=== PATIENT | male | born 1935 | race Caucasian/White ===

== ENCOUNTER → 2016-05-20 | Outpatient (CLI) | payer MEDICARE ==
--- NOTE | 2016-05-20 13:02 | CARD ---
APPROVED REPORT EXAM: Two-dimensional and M-mode echocardiogram with Doppler and color Doppler. Other Information Quality : GoodHR: 58bpm Rhythm : NSR INDICATION Syncope Murmur 2D DIMENSIONS RVDd3.2 (2.9-3.5cm)Left Atrium(2D)3.5 (1.6-4.0cm) IVSd0.9 (0.7-1.1cm)Aortic Root(2D)3.4 (2.0-3.7cm) LVDd5.2 (3.9-5.9cm)LVOT Diameter2.0 (1.8-2.4cm) PWd1.0 (0.7-1.1cm)LVDs2.7 (2.5-4.0cm) FS (%) 48.1 %SV104.6 ml LVEF(%)79.2 (>50%) Aortic Valve AoV Peak Arnold.158.9cm/sAoV VTI35.1cm AO Peak GR.10.1mmHgLVOT Peak Arnold.86.5cm/s LVOT VTI 20.79cmAO Mean GR.5mmHg EVELIO (VMAX)1.19gl1QVH (VTI)1.87cm2 Mitral Valve MV E Xauazvyl88.8cm/sMV DECEL [id number] MV A Maehtipa67.7cm/sMV E Mean Gr.2mmHg MV JJG27dwB/A Ratio0.9 MV A Fqrckyph478zoNWJ (PHT)2.62cm2 TDI E/Lateral E'10.9E/Medial E'10.3 Pulmonary Valve PV Peak Tkomawrd53.8cm/sPV Peak Grad.3mmHg RVOT VTI16.2cm Tricuspid Valve TR P. Eapsstsk832af/sRAP XCEEDFFU5ruVk TR Peak Gr.50irIzWFCK84iqMc Pulmonary Vein S1 Afctrrtq52.0cm/sD2 Rpjrrjmf26.2cm/s PVa hfihqnvk735trdb LEFT VENTRICLE The left ventricle is normal size. There is normal left ventricular wall thickness. Left ventricle sy stolic function is normal. The Ejection Fraction is 55-60%. There is normal LV segmental wall motion. Transmitral Doppler flow pattern is Grade I-abnormal relaxation pattern. There is no ventricular sep hoa defect visualized. RIGHT VENTRICLE The right ventricle is normal size. There is normal right ventricular wall thickness. The right ventr icular systolic function is normal. ATRIA The left atrium size is normal. The right atrium size is normal. The interatrial septum is intact wit h no evidence for an atrial septal defect or patent foramen ovale as noted on 2-D or Doppler imaging. AORTIC VALVE The aortic valve is calcified but opens well. The aortic valve is trileaflet. Doppler and Color Flow revealed no significant aortic regurgitation. There is no significant aortic valvular stenosis. MITRAL VALVE Mitral annular calcification is mild. There is no evidence of mitral valve prolapse. There is no mitr al valve stenosis. Doppler and Color Flow revealed mild mitral regurgitation. TRICUSPID VALVE The tricuspid valve is normal in structure. Doppler and Color Flow revealed mild tricuspid regurgitat ion. There is mild pulmonary hypertension. The PA pressure was estimated at 36 mmHg. PULMONIC VALVE The pulmonary valve is normal in structure. Doppler and Color Flow revealed mild pulmonic valvular re gurgitation. GREAT VESSELS The aortic root is normal in size. The ascending aorta is normal in size. Normal pulmonary venous xochilt w (Doppler). The IVC is normal in size and collapses >50% with inspiration. PERICARDIAL EFFUSION There is no pleural effusion. There is no evidence of significant pericardial effusion. Critical Notification Critical Value: No <Conclusion> Left ventricle systolic function is normal. The Ejection Fraction is 55-60%. Mild mitral regurgitation. Mild tricuspid regurgitation. There is mild pulmonary hypertension. The PA pressure was estimated at 36 mmHg. There is no evidence of significant pericardial effusion.
--- NOTE | 2016-05-21 11:28 | RAD ---
APPROVED REPORT Patient Location: OUT-PATIENT Laterality:Bilateral Indications Dizziness and Vertigo Doppler Spectral Velocity Analysis Right Left pCCA 80/09 cm/spCCA 108/12 cm/s mCCA 60/09 cm/smCCA 91/12 cm/s dCCA 59/12 cm/sdCCA 67/10 cm/s Bulb 57/07 cm/sBulb 58/10 cm/s ECA 154/ cm/sECA 96/ cm/s pICA 161/20 cm/spICA 75/13 cm/s Jose Cruz 150/17 cm/smICA 89/21 cm/s dICA 102/17 cm/sdICA 79/21 cm/s Vert. 57/ cm/sVert. 50/ cm/s Subcl. 104/ cm/sSubcl. 96/ cm/s ICA/CCA 2.01ICA/CCA 0.82 Findings Mckoy scale images of the bilateral common carotid arteries and internal and external carotid arteries were obtained. The right common carotid artery has mild intimal hyperplasia and minimal plaque. The carotid bulb appears to be tortuous with moderate to severe plaque. The right internal carotid artery has approximately 50-69% stenosis restarted velocity criteria but based on visual appearance the obs truction appears to be greater than 70%. The right vertebral artery flow is antegrade. Normal right s ubclavian flows are noted. On the left, the common carotid artery has minimal intimal hyperplasia and plaque. The carotid bulb h as mild to moderate obstructive plaque. Based on velocity criteria there is 0-50% stenosis in the lef t internal carotid artery. No significant obstructive plaque is identified. The left vertebral artery has antegrade flow. The left subclavian velocities are within normal limits. The bilateral external carotid arteries are notable for elevated velocities suggestive of mild to mod erate obstructive disease. Critical Notification Critical Value: No <Conclusion> Suspicion for greater than 70% stenosis based on ultrasound images of the right carotid artery at the bulb and internal carotid vessels. Based on velocity criteria this stenosis appears to be more moder ate at less than 70%.
== END | disposition home or self-care (01) ==
LOC: ECHO 09:53
PROVIDERS: ATTEND Internal Medicine Cardiovascular Disease
DX: I65.23 Occlusion and stenosis of bilateral carotid arteries (principal); R01.1 Cardiac murmur, unspecified; R09.89 Other specified symptoms and signs involving the circulatory and respiratory systems; R42 Dizziness and giddiness; I34.0 Nonrheumatic mitral (valve) insufficiency; I27.2 Other secondary pulmonary hypertension; I37.1 Nonrheumatic pulmonary valve insufficiency
CPT/HCPCS: 93306; 93880

== ENCOUNTER → 2016-06-13 | Outpatient (CLI) | payer MEDICARE ==
[~2016-06-13] MED LIST: ATORVASTATIN CA80 MG PO; CARV25TA2 PO; CONTRAST GIVEN MC PRN; FINA5TAB4 PO; IOHEXOL 300 MG/ML 100ML VIAL. IV ONE; LISI-338 PO; SITA1TAB7 PO; TAMS0.4C2 PO
--- NOTE | 2016-06-13 13:00 | KCIC ---
CTA neck with contrast Indication: Left carotid artery disease. Axial imaging through the soft tissues of the neck was performed after the administration of intravenous contrast and utilizing the CT angiography protocol. Multiplanar, 3D and MIP reformations were also performed. PQRS STATEMENT One or more of the following individualized dose reduction techniques were utilized for this study: 1.Automated exposure control. 2.Adjustment of the mA and/orkVaccording to patient size. 3.Use of iterative reconstruction technique. There is a 3 vessel branching pattern to the aortic arch. The origins of the great vessels appear to be patent. Both common carotid arteries are widely patent. There is mild calcified plaque noted at the left carotid bifurcation extending into the proximal internal and external carotid arteries. However, no focal stenosis is identified. On the right there is more significant calcified plaque at the carotid bifurcation extending into the proximal internal and external carotid arteries. But no high-grade stenosis is seen. There is an approximately 50 percent diameter stenosis. The remainder of the ICA is unremarkable. There is calcified plaque in the carotid siphons bilaterally. The vertebral arteries appear to be codominant. Impression: There is heavy calcified plaque at the carotid bifurcations bilaterally. This does result in approximately 50 percent diameter stenosis in the proximal right ICA. No significant stenosis on the left is identified. Electronically signed by: Trey Prieto MD (Jun 13, 2016 12:58:40)
== END | disposition home or self-care (01) ==
LOC: KCIC CT 10:14
PROVIDERS: ATTEND Internal Medicine Cardiovascular Disease
DX: I65.22 Occlusion and stenosis of left carotid artery (principal)
CPT/HCPCS: 70498; Q9967

== ENCOUNTER → 2018-01-20 | Outpatient (CLI) | payer BC ==
[~2018-01-20] MED LIST changes: -CONTRAST GIVEN MC PRN; -IOHEXOL 300 MG/ML 100ML VIAL. IV ONE
--- NOTE | 2018-01-20 11:37 | KCIC ---
Carotid Doppler dated 01/20/2018. Comparison none. Clinical Indication: Carotid stenosis. Findings: Grayscale, color flow and spectral waveform analysis was performed. Moderate plaque at both carotid bifurcations and the proximal bilateral CCA. Plaque also extends into the proximal internal carotid arteries bilaterally. Focal velocity elevation at the right carotid bulb estimated at 243 cm/s.. The waveforms are within normal limits. Flow within the bilateral vertebral arteries is antegrade. Velocity measurements are as follows (centimeters per second ) Peak systolic velocity right left ICA 229 108 CCA 74 135 ECA 180 34 ICA/CCA ratio 3.57 1.02 Impression: 1. Focal velocity elevation of the proximal right internal carotid artery and carotid bulb, consistent with moderate grade stenosis (50-69% narrowing). 2. No hemodynamically significant stenosis on the left. Stenosis calculations for carotid ultrasound studies are derived from validated velocity criteria which are known to correlate with the NASCET methodology. Electronically signed by: Jignesh Gómez MD (01/20/2018 11:34 AM) [facility]-KCIC2
== END | disposition home or self-care (01) ==
LOC: KCIC US 09:01
PROVIDERS: ATTEND Family Medicine
DX: I65.22 Occlusion and stenosis of left carotid artery (principal)
CPT/HCPCS: 93880

== ENCOUNTER → 2018-08-24 | Outpatient (CLI) | payer BC ==
--- NOTE | 2018-08-24 17:20 | KCIC ---
CHEST PA LATERAL History: Fatigue and dizziness for 2 weeks. No prior for comparison. The heart size is not enlarged. No evidence of pneumothorax. No pleural effusion. No evidence of an infiltrate. Degenerative spurring of the spine. IMPRESSION: No evidence of consolidating infiltrate. Electronically signed by: Jignesh Mcdonald MD (08/24/2018 5:17 PM) [facility]-KCIC[facility]
== END | disposition home or self-care (01) ==
LOC: KCIC 16:01
PROVIDERS: ATTEND Family Medicine
DX: R42 Dizziness and giddiness (principal)
CPT/HCPCS: 71046

== ENCOUNTER → 2018-09-18 | Day surgery (SDC) | payer BC ==
[~2018-09-18] MED LIST changes: +ASPI81TA50 PO; +CYAN10005 SQ; +IV RINGERS,LACTATED 1000ML 1,000 ML IV SCH; +LIDOCAINE 2% PF 5 ML VIAL. ONE; +PROPOFOL 20 ML IV ONE; +PROPOFOL 40 ML IV ONE
[2018-09-18 09:50] VITALS: BP 155/70
--- NOTE | 2018-09-21 13:06 | PATHOLOGY ---
[facility] Accession Number: [id number] . 01 Material submitted: . colon - SIGMOID POLYP. Modifiers: sigmoid . 01 Clinical history: . Positive cologuard . 02 Diagnosis: Colon, sigmoid, biopsy: - Adenomatous polpys, 3. (SKM:allison; 09/21/2018) QMS/09/21/2018 . 02 Electronically signed: . Khanh Lantigua MD, Pathologist NPI- [id number] . 01 Gross description: . Received in formalin labeled "Genz, Joseph, sigmoid polyp," are 3 segments of shine soft tissue measuring 1.4 x 1.0 x 0.5 cm in aggregate dimensions and ranging from 0.4 to 0.6 cm in maximum dimension. The specimen is submitted entirely in cassette A1. (TSD; 09/18/2018) TOB/TOB . 02 Pathologist provided ICD-10: D12.5 . 02 CPT . 226992 Specimen Comment: A courtesy copy of this report has been sent to Specimen Comment: [phone], . Specimen Comment: Report sent to / DR CUI Performed at: 01 [facility] [address], [place] [id number] MD Connor Aals MD Phone: [phone] Performed at: 02 [facility] [address], [place] [id number] MD Otis Whittington MD Phone: [phone]
== END ==
LOC: ENDOS 07:57
PROVIDERS: ATTEND Internal Medicine Gastroenterology
DX: D12.5 Benign neoplasm of sigmoid colon (principal); K57.30 Diverticulosis of large intestine without perforation or abscess without bleeding; K64.0 First degree hemorrhoids; D50.0 Iron deficiency anemia secondary to blood loss (chronic); E11.9 Type 2 diabetes mellitus without complications; I10 Essential (primary) hypertension; F15.90 Other stimulant use, unspecified, uncomplicated; F17.210 Nicotine dependence, cigarettes, uncomplicated; Z88.1 Allergy status to other antibiotic agents; Z88.0 Allergy status to penicillin; Z88.8 Allergy status to other drugs, medicaments and biological substances; Z72.89 Other problems related to lifestyle; Z79.82 Long term (current) use of aspirin; Z98.52 Vasectomy status; Z79.84 Long term (current) use of oral hypoglycemic drugs
CPT/HCPCS: 45385; 82962; 88305; J2001; J2704; 45380

== ENCOUNTER 2019-09-20 09:25 | Inpatient (IN) | payer BC ==
[~2019-09-20] VITALS: Ht 172.7 cm; Wt 75.0 kg
[~2019-09-20 09:25] MED LIST changes: +CYAN-25 SQ; -CYAN10005 SQ; -IV RINGERS,LACTATED 1000ML 1,000 ML IV SCH; -LIDOCAINE 2% PF 5 ML VIAL. ONE; -PROPOFOL 20 ML IV ONE; -PROPOFOL 40 ML IV ONE
[2019-09-20 11:25] LABS: ALBUMIN 3.4 g/dL (3.4-5.0); CALCIUM 8.3 mg/dL (8.5-10.1); CREATININE 1.4 mg/dL (0.7-1.3); DIRECT BILIRUBIN 0.1 mg/dL (0.0-0.2); GFR 48.5; POTASSIUM 4.2 mmol/L (3.5-5.1); TOTAL BILIRUBIN 0.6 mg/dL (0.2-1.0); TOTAL PROTEIN 7.4 g/dL (6.4-8.2)
[2019-09-20 11:26] LABS: MAGNESIUM 1.4 mg/dL (1.8-2.4)
[2019-09-20 11:29] LABS: PROTHROMBIN TIME PATIENT 12.7 SEC (11.7-14.0)
--- NOTE | 2019-09-20 11:37 | RAD ---
EXAM: PORTABLE CHEST 1V INDICATION: Reason: RIGHT SIDED WEAKNESS / Spl. Instructions: / History: . TECHNIQUE: PA and lateral views COMPARISON: None FINDINGS: The heart size is normal. The great vessels appear unremarkable. There is no hilar or mediastinal mass. The lungs are clear. There is no pleural effusion or pneumothorax. There are no significant osseous abnormalities. IMPRESSION: No active cardiopulmonary disease. Electronically signed by: Nu Mccauley MD (09/20/2019 11:33 AM) [id number]
--- NOTE | 2019-09-20 11:40 | RAD ---
CT Head W/O Contrast: Axial images were obtained without contrast. PQRS Compliance Statement: One or more of the following individualized dose reduction techniques were utilized for this examination: 1. Automated exposure control 2. Adjustment of the mA and/or kV according to patient size 3. Use of iterative reconstruction technique History: Change in mental status Comparison: none There is mild diffuse atrophy. There is no mass effect, extraaxial fluid collections or hydrocephalus. There is no gross bleed. Mild, patchy periventricular and subcortical white matter hypoattenuation is seen. There is no focal loss of haque-white matter distinction to suggest acute ischemia, i.e. stroke. Impression: 1. Age expected atrophy. 2. Diffuse white matter disease is non specific but likely secondary to chronic small vessel disease at this patient's age. 3. No acute findings. Discussed with Dr. Dietrich by telephone at 10:30 AM on 09/20/2019.
[2019-09-20 11:49] LABS: EOS % 0 % (0-3); HEMATOCRIT 33.3 % (39.0-53.0); HEMOGLOBIN 11.5 g/dL (13.0-17.5); LYMPH % 12 % (24-48); MEAN CORPUSCULAR HEMOGLOBIN 33 pg (25-35); MEAN CORPUSCULAR HGB CONC 34 g/dL (31-37); MEAN CORPUSCULAR VOLUME 95 fL (79-100); MONO % 6 % (0-9); NEUT % 82 % (31-73); PLATELET COUNT 292 x10^3/uL (140-400); RED BLOOD COUNT 3.49 x10^6/uL (4.30-5.70); RED CELL DISTRIBUTION WIDTH 14.9 % (11.5-14.5); WHITE BLOOD COUNT 11.7 x10^3/uL (4.0-11.0)
[2019-09-20 11:50] LABS: BASO % 0 % (0-3); LYMPH # 1.4 x10^3/uL (1.0-4.8); MONO # 0.7 x10^3/uL (0.0-1.1); NEUT # 9.6 x10^3/uL (1.8-7.7)
[2019-09-20] MEDS ORDERED: MAGNESIUM SULFATE 2GM 50 ML IV ONE (12:30)
[2019-09-20 14:32] VITALS: BP 170/60
--- NOTE | 2019-09-20 14:36 | PDOC1 ---
History and Physical Date of Admission Date of Admission DATE: 09/20/19 TIME: 14:33 Identification/Chief Complaint Chief Complaint Right sided weakness Source Source: Patient History of Present Illness History of Present Illness Mr Rowley is an 83yo M w/ PMHx HTN, HLD, peripheral neuropathy, DM2, BPH who comes to ED c/o right arm weakness and dysarthria. This began during the day on 09/19/2019. He felt his right eyelid sagging at the time. His of 60+ years did not note any facial asymmetry, but does note that he has not felt well for the past month He feels his speech difficulties have improved a bit, but his right hand weakness persists. He also notes general malaise and has not been eating well has lost weight. He denies headache, diplopia, dysphagia, or cognitive changes. He and his recall a similar episode over 2 years ago and he did have carotid dopplers at the time and was told he has right sided carotid disease (though he and his feel he was told he has left sided carotid disease). CT head negative in ED for acute changes. CXR with no acute disease. Labs significant for Na 139, K 4.2, BUN 32, Cr 1.4, glucose 189, Mag 1.4, WBC 11.7, Hb 11.5, Platelets 292 EKG appears NSR at 58 beats per minute, no ST segment elevation. Admitted for further treatment. Past Medical History Cardiovascular: HTN, Hyperlipidemia Renal/: Benign prostatic enlarg. Endocrine: Diabetes Past Surgical History Past Surgical History Anterior cervical discectomy and fusion, testicular, vasectomy Past Surgical History: Cataract Removal Family History Family History: Hypertension Social History Smoke: No ALCOHOL: rare (2 drinks per week) Drugs: None Current Problem List Problem List Problems Medical Problems: (1) Right sided weakness Status: Acute Current Medications Current Medications Current Medications Magnesium Sulfate 50 ml @ 25 mls/hr 1X ONCE IV Last administered on 09/20/19at 12:24; Start 09/20/19 at 12:30; Stop 09/20/19 at 14:29; Status DC Active Scripts Active Reported Vitamin B-12 (Cyanocobalamin (Vitamin B-12)) 1,000 Mcg Tablet 1,000 Mcg SQ Q4WK Aspir-Low (Aspirin) 81 Mg Tablet. 81 Mg PO DAILY Gonsaloumet 50-500 Mg Tablet (Sitagliptin Phos/Metformin Hcl) 1 Each Tablet 1 Tab PO BID Tamsulosin Hcl 0.4 Mg Cap.er.24h 1 Cap PO DAILY Finasteride 5 Mg Tablet 1 Tab PO DAILY Carvedilol 25 Mg Tablet 1 Tab PO BID Atorvastatin Calcium 80 Mg Tablet 1 Tab PO DAILY Allergies Allergies: Coded Allergies: amoxicillin (Verified Allergy, Intermediate, 09/18/18) ROS General: YES: Fatigue, Malaise, Appetite; No: Chills, Night Sweats, Other PSYCHOLOGICAL ROS: No: Anxiety, Behavioral Disorder, Concentration difficultie, Decreased libido, Depression, Disorientation, Hallucinations, Hostility, Ir ritablity, Memory difficulties, Mood Swings, Obsessive thoughts, Physical abuse, Sexual abuse, Sleep disturbances, Suicidal ideation, Other Eyes: No Blurry vision, No Decreased vision, No Double vision, No Dry eyes, No Excessive tearing, No Eye Pain, No Itchy Eyes, No Loss of vision, No Photophobia, No Scotomata, No Uses contacts, No Uses glasses, No Other HEENT: No: Heacaches, Visual Changes, Hearing change, Nasal congestion, Nasal discharge, Oral lesions, Sinus pain, Sore Throat, Epistaxis, Sneezing, Snoring, Tinnitus, Vertigo, Vocal changes, Other ALLERGY AND IMMUNOLOGY: No: Hives, Insect Bite Sensitivity, Itchy/Watery Eyes, Nasal Congestion, Post Nasal Drip, Seasonal Allergies, Other Hematological and Lymphatic: No: Bleeding Problems, Blood Clots, Blood Transfusions, Brusing, Night Sweats, Pallor, Swollen Lymph Nodes, Other ENDOCRINE: No: Breast Changes, Galactorrhea, Hair Pattern Changes, Hot Flashes, Malaise/lethargy, Mood Swings, Palpitations, Polydipsia/polyuria, Skin Changes, Temperature Intolerance, Unexpected Weight Changes, Other Breast: No New/Changing Breast Lumps, No Nipple changes, No Nipple discharge, No Other Respiratory: No: Cough, Hemoptysis, Orthopnea, Pleuritic Pain, Shortness of breath, SOB with excertion, Sputum Changes, Stridor, Tachypnea, Wheezing, Other Cardiovascular: No Chest Pain, No Palpitations, No Orthopnea, No Paroxysmal Noc. Dyspnea, No Edema, No Lt Headedness, No Other Gastrointestinal: No Nausea, No Vomiting, No Abdominal Pain, No Diarrhea, No Constipation, No Melena, No Hematochezia, No Other Genitourinary: No Dysuria, No Frequency, No Incontinence, No Hematuria, No Retention, No Discharge, No Urgency, No Pain, No Flank Pain, No Other, No , No , No , No , No , No , No Musculoskeletal: Yes Muscular Weakness; No Gait Disturbance, No Joint Pain, No Joint Stiffness, No Joint Swelling, No Muscle Pain, No Pain In:, No Swelling In:, No Other Neurological: Yes Numbness/Tingling, Yes Speech Problems; No Behavorial Changes, No Bowel/Bladder ControlChng, No Confusion, No Dizziness, No Gait Disturbance, No Headaches, No Impaired Coord/balance, No Memory Loss, No Seizures, No Tremors, No Visual Changes, No Weakness, No Other Skin: No Dry Skin, No Eczema, No Hair Changes, No Lumps, No Mole Changes, No Mottling, No Nail Changes, No Pruritus, No Rash, No Skin Lesion Changes, No Other, No Acne Physical Exam General: Alert, Oriented X3, Cooperative, No acute distress HEENT: Atraumatic, PERRLA, EOMI, Mucous membr. 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) Psych/Mental Status: Mental status NL, Mood NL Labs Labs Laboratory Tests Test 09/20/19 10:00 White Blood Count 11.7 x10^3/uL (4.0-11.0) Red Blood Count 3.49 x10^6/uL (4.30-5.70) Hemoglobin 11.5 g/dL (13.0-17.5) Hematocrit 33.3 % (39.0-53.0) Mean Corpuscular Volume 95 fL (79-100) Mean Corpuscular Hemoglobin 33 pg (25-35) Mean Corpuscular Hemoglobin Concent 34 g/dL (31-37) Red Cell Distribution Width 14.9 % (11.5-14.5) Platelet Count 292 x10^3/uL (140-400) Neutrophils (%) (Auto) 82 % (31-73) Lymphocytes (%) (Auto) 12 % (24-48) Monocytes (%) (Auto) 6 % (0-9) Eosinophils (%) (Auto) 0 % (0-3) Basophils (%) (Auto) 0 % (0-3) Neutrophils # (Auto) 9.6 x10^3/uL (1.8-7.7) Lymphocytes # (Auto) 1.4 x10^3/uL (1.0-4.8) Monocytes # (Auto) 0.7 x10^3/uL (0.0-1.1) Eosinophils # (Auto) 0.0 x10^3/uL (0.0-0.7) Basophils # (Auto) 0.0 x10^3/uL (0.0-0.2) Prothrombin Time 12.7 SEC (11.7-14.0) Prothromb Time International Ratio 1.0 (0.8-1.1) Activated Partial Thromboplast Time 35 SEC (24-38) Sodium Level 139 mmol/L (136-145) Potassium Level 4.2 mmol/L (3.5-5.1) Chloride Level 103 mmol/L (98-107) Carbon Dioxide Level 26 mmol/L (21-32) Anion Gap 10 (6-14) Blood Urea Nitrogen 32 mg/dL (8-26) Creatinine 1.4 mg/dL (0.7-1.3) Estimated GFR (Cockcroft-Gault) 48.5 Glucose Level 189 mg/dL (70-99) Calcium Level 8.3 mg/dL (8.5-10.1) Magnesium Level 1.4 mg/dL (1.8-2.4) Total Bilirubin 0.6 mg/dL (0.2-1.0) Direct Bilirubin 0.1 mg/dL (0.0-0.2) Aspartate Amino Transf (AST/SGOT) 16 U/L (15-37) Alanine Aminotransferase (ALT/SGPT) 21 U/L (16-63) Alkaline Phosphatase 92 U/L (46-116) Troponin I Quantitative < 0.017 ng/mL (0.000-0.055) SN-Pcd-S-Type Natriuretic Peptide 181 pg/mL (0-449) Total Protein 7.4 g/dL (6.4-8.2) Albumin 3.4 g/dL (3.4-5.0) Laboratory Tests Test 09/20/19 10:00 White Blood Count 11.7 x10^3/uL (4.0-11.0) Red Blood Count 3.49 x10^6/uL (4.30-5.70) Hemoglobin 11.5 g/dL (13.0-17.5) Hematocrit 33.3 % (39.0-53.0) Mean Corpuscular Volume 95 fL (79-100) Mean Corpuscular Hemoglobin 33 pg (25-35) Mean Corpuscular Hemoglobin Concent 34 g/dL (31-37) Red Cell Distribution Width 14.9 % (11.5-14.5) Platelet Count 292 x10^3/uL (140-400) Neutrophils (%) (Auto) 82 % (31-73) Lymphocytes (%) (Auto) 12 % (24-48) Monocytes (%) (Auto) 6 % (0-9) Eosinophils (%) (Auto) 0 % (0-3) Basophils (%) (Auto) 0 % (0-3) Neutrophils # (Auto) 9.6 x10^3/uL (1.8-7.7) Lymphocytes # (Auto) 1.4 x10^3/uL (1.0-4.8) Monocytes # (Auto) 0.7 x10^3/uL (0.0-1.1) Eosinophils # (Auto) 0.0 x10^3/uL (0.0-0.7) Basophils # (Auto) 0.0 x10^3/uL (0.0-0.2) Prothrombin Time 12.7 SEC (11.7-14.0) Prothromb Time International Ratio 1.0 (0.8-1.1) Activated Partial Thromboplast Time 35 SEC (24-38) Sodium Level 139 mmol/L (136-145) Potassium Level 4.2 mmol/L (3.5-5.1) Chloride Level 103 mmol/L (98-107) Carbon Dioxide Level 26 mmol/L (21-32) Anion Gap 10 (6-14) Blood Urea Nitrogen 32 mg/dL (8-26) Creatinine 1.4 mg/dL (0.7-1.3) Estimated GFR (Cockcroft-Gault) 48.5 Glucose Level 189 mg/dL (70-99) Calcium Level 8.3 mg/dL (8.5-10.1) Magnesium Level 1.4 mg/dL (1.8-2.4) Total Bilirubin 0.6 mg/dL (0.2-1.0) Direct Bilirubin 0.1 mg/dL (0.0-0.2) Aspartate Amino Transf (AST/SGOT) 16 U/L (15-37) Alanine Aminotransferase (ALT/SGPT) 21 U/L (16-63) Alkaline Phosphatase 92 U/L (46-116) Troponin I Quantitative < 0.017 ng/mL (0.000-0.055) XF-Fwd-K-Type Natriuretic Peptide 181 pg/mL (0-449) Total Protein 7.4 g/dL (6.4-8.2) Albumin 3.4 g/dL (3.4-5.0) Images Images CT head - non contrast: There is mild diffuse atrophy. There is no mass effect, extraaxial fluid collections or hydrocephalus. There is no gross bleed. Mild, patchy periven tricular and subcortical white matter hypoattenuation is seen. There is no focal loss of haque-white matter distinction to suggest acute ischemia, i.e. stroke. Impression: 1. Age expected atrophy. 2. Diffuse white matter disease is non specific but likely secondary to chronic small vessel disease at this patient's age. 3. No acute findings. VTE Prophylaxis Ordered VTE Prophylaxis Devices: No VTE Pharmacological Prophylaxi: Yes Assessment/Plan Assessment/Plan A/P: Right arm weakness - high risk CVA. Sx consistent with lacunar type CVA - dysa rthria, facial weakness, right arm weakness. Prior carotid US show right ICA stenosis, but no dz on left. ASA, Neuro Hypocalcemia - with normal albumin, will replace mag and repeat level in AM. HCTZ usually causes hypercalcemia, will monitor closely Hypomagnesemia - likely 2/2 HCTz use. Will hold given his age and renal insufficiency. Replace Leukocytosis - with left shift. No obvious sign of acute infection, negative CXR. Could be reactive 2/2 AUSTYN AUSTYN - likely vasomotor nephropathy from HTN, HLD, peripheral neuropathy DM2 - with hyperglycemia. Given AUSTYN will hold metformin. Cont DPP4, will place on sliding scale, check A1c BPH - cont meds Generalized weakness - possibly related to progression of diabetes, will have PT/OT evaluation for gait, ADLs FEN - ADA diet PPX - heparin FULL CODE Dispo - inpatient likely 2 midnights Justicifation of Admission Dx: Justifications for Admission: Justification of Admission Dx: Yes HOLA EMERSON MD Sep 20, 2019 14:36
[2019-09-20] MEDS ORDERED: HYDR12.58 PO (17:07)
[2019-09-20] MEDS ORDERED: SITA1TAB11 PO (17:07)
[2019-09-20] MEDS ORDERED: ASCO500C9 PO (17:07)
[2019-09-20] MEDS ORDERED: ASPIRIN RECTAL 300 MG SUPP. PR PRN (17:15)
[2019-09-20] MEDS ORDERED: ACETAMINOPHEN 650 MG SUPP.RECT. PR PRN (17:15)
[2019-09-20] MEDS ORDERED: ACETAMINOPHEN 325 MG TABLET. PO PRN (17:15)
--- NOTE | 2019-09-20 17:15 | PDOC2 ---
NEUROLOGY CONSULT Date of Admission Date of Admission DATE: 09/20/19 TIME: 17:08 Reason for Consult Reason for Consult: stroke Referring Physician Referring Physician: Dr. Sanchez PCP: Dr. Ruiz Source Source: Chart review, Patient History of Present Illness History of Present Illness The patient is an 83-year-old right-handed male who has not felt well for the past month. He has not been eating well has lost weight and felt weak all over. Yesterday he noticed some right arm weakness and last night he had some dysarthria and he came to the emergency department today. There is no prior history of stroke, seizure, or head injury. He denies headache, diplopia, dysphagia, or cognitive change Past Medical History Cardiovascular: HTN, Hyperlipidemia CENTRAL NERVOUS SYSTEM: Periperal neuropathy GI: Diverticulosis, Other (Colonic polyps, diarrhea) Musculoskeletal: Other (Rib fracture) Renal/: Benign prostatic enlarg. Endocrine: Diabetes Past Surgical History Past Surgical History: Cataract Removal, Other (Anterior cervical discectomy and fusion, testicular, vasectomy) Family History Family History: No pertinent hx Social History Social History , 2 alcoholic beverages a week, non-smoker, retired Current Medications Current Medications Current Medications Magnesium Sulfate 50 ml @ 25 mls/hr 1X ONCE IV Last administered on 09/20/19at 12:24; Start 09/20/19 at 12:30; Stop 09/20/19 at 14:29; Status DC Active Scripts Active Reported Hydrochlorothiazide Tablet (Hydrochlorothiazide) 12.5 Mg Tablet 25 Mg PO DAILY Janumet 50-1,000 Mg Tablet (Sitagliptin Phos/Metformin Hcl) 1 Each Tablet 1 Tab PO BID Vitamin C (Ascorbic Acid) 500 Mg Capsule 1 Cap PO DAILY 28 Days Vitamin B-12 (Cyanocobalamin (Vitamin B-12)) 1,000 Mcg Tablet 1,000 Mcg SQ Q4WK Aspir-Low (Aspirin) 81 Mg Tablet. 81 Mg PO DAILY Tamsulosin Hcl 0.4 Mg Cap.er.24h 1 Cap PO DAILY Finasteride 5 Mg Tablet 1 Tab PO DAILY Carvedilol 25 Mg Tablet 1 Tab PO BID Atorvastatin Calcium 80 Mg Tablet 1 Tab PO DAILY Allergies Allergies: Coded Allergies: amoxicillin (Verified Allergy, Intermediate, 09/18/18) ROS Review of System Negative for fever, chills, shortness of breath, chest pain, indigestion, hematochezia, melena, and dysuria. Positive for weight loss. Full 14-point review of systems is negative. Physical Exam Physical Examination General: Well-developed, well-nourished white male in no acute distress HEENT: Normocephalic andatraumatic. Temporal arteriespulsatile and nontender. Neck: Supple without bruit, no meningismus Musculoskeletal: Stability:see neurologic. Gait exam:see neurologic. Tone:see neurologic.Strength:see neurologic. Neurological: Mental Status:intact, orientation, memory, attention span/concentration, language, fund of knowledge normal. Very mild dysarthria. Cranial Nerves:Pupils equal and reactive to light, extraocular movements areintact, visual ro are full to confrontation. Facial sensation is normal. There is a slight right central facial weakness. Vestibulo-ocular reflex is intact. Palate elevates and tongue protrudes in midline. All other cranial related problems are negative except as mentioned before.Reflexes:2+ and symmetric with flexor plantar responses. Motor:5/5 strength with normal tone and bulk. Coordination:Finger-nose finger and mmyh-le-vntf testing are normal. Rapid alternating movements and fine finger movements are intact. Gait:A little unsteady. Sensory:Normal pinprick, vibration, light touch, proprioception. Vitals VITALS Vital Signs Date Time Temp Pulse Resp B/P (MAP) Pulse Ox O2 Delivery O2 Flow Rate FiO2 09/20/19 14:32 97.4 57 18 170/60 (96) 95 Room Air 97.4 Labs Labs Laboratory Tests Test 09/20/19 10:00 09/20/19 16:12 White Blood Count 11.7 x10^3/uL (4.0-11.0) Red Blood Count 3.49 x10^6/uL (4.30-5.70) Hemoglobin 11.5 g/dL (13.0-17.5) Hematocrit 33.3 % (39.0-53.0) Mean Corpuscular Volume 95 fL (79-100) Mean Corpuscular Hemoglobin 33 pg (25-35) Mean Corpuscular Hemoglobin Concent 34 g/dL (31-37) Red Cell Distribution Width 14.9 % (11.5-14.5) Platelet Count 292 x10^3/uL (140-400) Neutrophils (%) (Auto) 82 % (31-73) Lymphocytes (%) (Auto) 12 % (24-48) Monocytes (%) (Auto) 6 % (0-9) Eosinophils (%) (Auto) 0 % (0-3) Basophils (%) (Auto) 0 % (0-3) Neutrophils # (Auto) 9.6 x10^3/uL (1.8-7.7) Lymphocytes # (Auto) 1.4 x10^3/uL (1.0-4.8) Monocytes # (Auto) 0.7 x10^3/uL (0.0-1.1) Eosinophils # (Auto) 0.0 x10^3/uL (0.0-0.7) Basophils # (Auto) 0.0 x10^3/uL (0.0-0.2) Prothrombin Time 12.7 SEC (11.7-14.0) Prothromb Time International Ratio 1.0 (0.8-1.1) Activated Partial Thromboplast Time 35 SEC (24-38) Sodium Level 139 mmol/L (136-145) Potassium Level 4.2 mmol/L (3.5-5.1) Chloride Level 103 mmol/L (98-107) Carbon Dioxide Level 26 mmol/L (21-32) Anion Gap 10 (6-14) Blood Urea Nitrogen 32 mg/dL (8-26) Creatinine 1.4 mg/dL (0.7-1.3) Estimated GFR (Cockcroft-Gault) 48.5 Glucose Level 189 mg/dL (70-99) Calcium Level 8.3 mg/dL (8.5-10.1) Magnesium Level 1.4 mg/dL (1.8-2.4) Total Bilirubin 0.6 mg/dL (0.2-1.0) Direct Bilirubin 0.1 mg/dL (0.0-0.2) Aspartate Amino Transf (AST/SGOT) 16 U/L (15-37) Alanine Aminotransferase (ALT/SGPT) 21 U/L (16-63) Alkaline Phosphatase 92 U/L (46-116) Troponin I Quantitative < 0.017 ng/mL (0.000-0.055) DK-Pbf-P-Type Natriuretic Peptide 181 pg/mL (0-449) Total Protein 7.4 g/dL (6.4-8.2) Albumin 3.4 g/dL (3.4-5.0) Glucose (Fingerstick) 84 mg/dL (70-99) Laboratory Tests Test 09/20/19 10:00 09/20/19 16:12 White Blood Count 11.7 x10^3/uL (4.0-11.0) Red Blood Count 3.49 x10^6/uL (4.30-5.70) Hemoglobin 11.5 g/dL (13.0-17.5) Hematocrit 33.3 % (39.0-53.0) Mean Corpuscular Volume 95 fL (79-100) Mean Corpuscular Hemoglobin 33 pg (25-35) Mean Corpuscular Hemoglobin Concent 34 g/dL (31-37) Red Cell Distribution Width 14.9 % (11.5-14.5) Platelet Count 292 x10^3/uL (140-400) Neutrophils (%) (Auto) 82 % (31-73) Lymphocytes (%) (Auto) 12 % (24-48) Monocytes (%) (Auto) 6 % (0-9) Eosinophils (%) (Auto) 0 % (0-3) Basophils (%) (Auto) 0 % (0-3) Neutrophils # (Auto) 9.6 x10^3/uL (1.8-7.7) Lymphocytes # (Auto) 1.4 x10^3/uL (1.0-4.8) Monocytes # (Auto) 0.7 x10^3/uL (0.0-1.1) Eosinophils # (Auto) 0.0 x10^3/uL (0.0-0.7) Basophils # (Auto) 0.0 x10^3/uL (0.0-0.2) Prothrombin Time 12.7 SEC (11.7-14.0) Prothromb Time International Ratio 1.0 (0.8-1.1) Activated Partial Thromboplast Time 35 SEC (24-38) Sodium Level 139 mmol/L (136-145) Potassium Level 4.2 mmol/L (3.5-5.1) Chloride Level 103 mmol/L (98-107) Carbon Dioxide Level 26 mmol/L (21-32) Anion Gap 10 (6-14) Blood Urea Nitrogen 32 mg/dL (8-26) Creatinine 1.4 mg/dL (0.7-1.3) Estimated GFR (Cockcroft-Gault) 48.5 Glucose Level 189 mg/dL (70-99) Calcium Level 8.3 mg/dL (8.5-10.1) Magnesium Level 1.4 mg/dL (1.8-2.4) Total Bilirubin 0.6 mg/dL (0.2-1.0) Direct Bilirubin 0.1 mg/dL (0.0-0.2) Aspartate Amino Transf (AST/SGOT) 16 U/L (15-37) Alanine Aminotransferase (ALT/SGPT) 21 U/L (16-63) Alkaline Phosphatase 92 U/L (46-116) Troponin I Quantitative < 0.017 ng/mL (0.000-0.055) HK-Zoj-O-Type Natriuretic Peptide 181 pg/mL (0-449) Total Protein 7.4 g/dL (6.4-8.2) Albumin 3.4 g/dL (3.4-5.0) Glucose (Fingerstick) 84 mg/dL (70-99) Images Images CT Head W/O Contrast: Axial images were obtained without contrast. PQRS Compliance Statement: One or more of the following individualized dose reduction techniques were utilized for this examination: 1. Automated exposure control 2. Adjustment of the mA and/or kV according to patient size 3. Use of iterative reconstruction technique History: Change in mental status Comparison: none There is mild diffuse atrophy. There is no mass effect, extraaxial fluid collections or hydrocephalus. There is no gross bleed. Mild, patchy periventricular and subcortical white matter hypoattenuation is seen. There is no focal loss of haque-white matter distinction to suggest acute ischemia, i.e. stroke. Impression: 1. Age expected atrophy. 2. Diffuse white matter disease is non specific but likely secondary to chronic small vessel disease at this patient's age. 3. No acute findings. Assessment/Plan Assessment/Plan Impression: Possible lacunar infarct causing dysarthria and right facial weakness, he also has right arm symptoms and I am keeping the mind the possibility of peripheral cause including entrapment neuropathy or cervical radiculopathy release for these hand symptoms Diagnosed as peripheral neuropathy, has some symptoms, but his exam is actually normal for sensation and reflexes General malaise for the last month, lab studies do show some azotemia, hyperglycemia, hypocalcemia, hypomagnesemia, leukocytosis Recommendations: MRI of the brain Echocardiogram Carotid Doppler studies Rehabilitation modalities Increase to 325 mg aspirin daily, will consider additional antiplatelet agent depending on work-up results. Also see stroke orders. Defer to internal medicine regarding items I listed above regarding the general malaise Thank you for letting me help with the patient's care. NOLVIA RIVERA MD Sep 20, 2019 17:15
--- NOTE | 2019-09-20 17:48 | PHYS DOC ---
Past Medical History Smoking Status: Former Smoker General Adult EDM: Chief Complaint: NEURO SYMPTOMS/DEFICITS HPI: HPI: Patient is a 83 year old male who presented to ER today for evaluation of right-sided weakness, right-sided facial numbness with slow speech started over 24-hour ago. Patient says he woke up yesterday morning with right sided weakness, then later in the evening he had some slurred speech. He did not really want to come to the hospital for evaluation but his made him come today. Patient denies any history of stroke. Patient denies any chest pain, no abdominal pain, no nausea vomiting. Patient denies any headache, no trouble breathing, no neck pain. Review of Systems: Review of Systems: Constitutional: Denies fever or chills. [] Eyes: Denies change in visual acuity. [] HENT: Denies nasal congestion or sore throat. [] Respiratory: Denies cough or shortness of breath. [] Cardiovascular: Denies chest pain or edema. [] GI: Denies abdominal pain, nausea, vomiting, bloody stools or diarrhea. [] : Denies dysuria. [] Musculoskeletal: Denies back pain or joint pain. [] Integument: Denies rash. [] Neurologic: Denies headache, positive for right-sided weakness, right-sided facial droop, slurred speech Endocrine: Denies polyuria or polydipsia. [] Lymphatic: Denies swollen glands. [] Psychiatric: Denies depression or anxiety. [] Heart Score: Risk Factors: Risk Factors: DM, Current or recent (<one month) smoker, HTN, HLP, family history of CAD, obesity. Risk Scores: Score 0 - 3: 2.5% MACE over next 6 weeks - Discharge Home Score 4 - 6: 20.3% MACE over next 6 weeks - Admit for Clinical Observation Score 7 - 10: 72.7% MACE over next 6 weeks - Early Invasive Strategies Current Medications: Current Medications Medications (Trade) Dose Ordered Sig/Leona Start Time Stop Time Status Last Admin Dose Admin Magnesium Sulfate 50 ml @ 25 mls/hr 1X ONCE 09/20/19 12:30 09/20/19 14:29 DC 09/20/19 12:24 25 MLS/HR Allergies: Allergies: Allergies Coded Allergies Type Severity Reaction Last Updated Verified amoxicillin Allergy Intermediate 09/18/18 Yes Physical Exam: PE: Constitutional: Well developed, well nourished, no acute distress, non-toxic appearance. [] HENT: Normocephalic, atraumatic, bilateral external ears normal, oropharynx moist, no oral exudates, nose normal. [] Eyes: PERRLA, EOMI, conjunctiva normal, no discharge. [] Neck: Normal range of motion, no tenderness, supple, no stridor. [] Cardiovascular:Heart rate regular rhythm, no murmur [] Lungs & Thorax: Bilateral breath sounds clear to auscultation [] Abdomen: Bowel sounds normal, soft, no tenderness, no masses, no pulsatile masses. [] Skin: Warm, dry, no erythema, no rash. [] Back: No tenderness, no CVA tenderness. [] Extremities: No tenderness, no cyanosis, no clubbing, ROM intact, no edema. [] Neurologic: Alert and oriented X 3, right side is weaker than left side. Mild right-sided facial droop. Mild slurred speech noted. Psychologic: Affect normal, judgement normal, mood normal. [] Current Patient Data: Labs: Laboratory Tests Test 09/20/19 10:00 09/20/19 16:12 White Blood Count 11.7 x10^3/uL (4.0-11.0) H Red Blood Count 3.49 x10^6/uL (4.30-5.70) L Hemoglobin 11.5 g/dL (13.0-17.5) L Hematocrit 33.3 % (39.0-53.0) L Mean Corpuscular Volume 95 fL (79-100) Mean Corpuscular Hemoglobin 33 pg (25-35) Mean Corpuscular Hemoglobin Concent 34 g/dL (31-37) Red Cell Distribution Width 14.9 % (11.5-14.5) H Platelet Count 292 x10^3/uL (140-400) Neutrophils (%) (Auto) 82 % (31-73) H Lymphocytes (%) (Auto) 12 % (24-48) L Monocytes (%) (Auto) 6 % (0-9) Eosinophils (%) (Auto) 0 % (0-3) Basophils (%) (Auto) 0 % (0-3) Neutrophils # (Auto) 9.6 x10^3/uL (1.8-7.7) H Lymphocytes # (Auto) 1.4 x10^3/uL (1.0-4.8) Monocytes # (Auto) 0.7 x10^3/uL (0.0-1.1) Eosinophils # (Auto) 0.0 x10^3/uL (0.0-0.7) Basophils # (Auto) 0.0 x10^3/uL (0.0-0.2) Prothrombin Time 12.7 SEC (11.7-14.0) Prothrombin Time INR 1.0 (0.8-1.1) Activated Partial Thromboplast Time 35 SEC (24-38) Sodium Level 139 mmol/L (136-145) Potassium Level 4.2 mmol/L (3.5-5.1) Chloride Level 103 mmol/L (98-107) Carbon Dioxide Level 26 mmol/L (21-32) Anion Gap 10 (6-14) Blood Urea Nitrogen 32 mg/dL (8-26) H Creatinine 1.4 mg/dL (0.7-1.3) H Estimated GFR (Cockcroft-Gault) 48.5 Glucose Level 189 mg/dL (70-99) H Calcium Level 8.3 mg/dL (8.5-10.1) L Magnesium Level 1.4 mg/dL (1.8-2.4) L Total Bilirubin 0.6 mg/dL (0.2-1.0) Direct Bilirubin 0.1 mg/dL (0.0-0.2) Aspartate Amino Transferase (AST) 16 U/L (15-37) Alanine Aminotransferase (ALT) 21 U/L (16-63) Alkaline Phosphatase 92 U/L (46-116) Troponin I Quantitative < 0.017 ng/mL (0.000-0.055) MN-Zgj-Z-Type Natriuretic Peptide 181 pg/mL (0-449) Total Protein 7.4 g/dL (6.4-8.2) Albumin 3.4 g/dL (3.4-5.0) Glucose (Fingerstick) 84 mg/dL (70-99) Laboratory Tests 09/20/19 10:00 Laboratory Tests 09/20/19 10:00 Vital Signs: Vital Signs Date Time Temp Pulse Resp B/P (MAP) Pulse Ox O2 Delivery O2 Flow Rate FiO2 09/20/19 14:32 97.4 57 18 170/60 (96) 95 Room Air 97.4 EKG: EKG: EKG was done at 1004, heart rate of 58 beats per minute, sinus rhythm, no ST segment elevation. Radiology/Procedures: Radiology/Procedures: [][facility] [address] [place] [address] IMAGING REPORT Signed PATIENT: FIORELLA HERNANDEZ ACCOUNT: [id number] : 1935 LOCATION: ER AGE: 83 SEX: M EXAM STATUS: REG ER ORD. PHYSICIAN: OSMANI BOLDEN DO REASON: right side weakness PROCEDURE: CT HEAD WO CONTRAST CT Head W/O Contrast: Axial images were obtained without contrast. RS Compliance Statement: One or more of the following individualized dose reduction techniques were utilized for this examination: 1. Automated exposure control 2. Adjustment of the mA and/or kV according to patient size 3. Use of iterative reconstruction technique History: Change in mental status Comparison: none There is mild diffuse atrophy. There is no mass effect, extraaxial fluid collections or hydrocephalus. There is no gross bleed. Mild, patchy periventricular and subcortical white matter hypoattenuation is seen. There is no focal loss of haque-white matter distinction to suggest acute ischemia, i.e. stroke. Impression: 1. Age expected atrophy. 2. Diffuse white matter disease is non specific but likely secondary to chronic small vessel disease at this patient's age. 3. No acute findings. Discussed with Dr. Dietrich by telephone at 10:30 AM on 09/20/2019. DICTATED and SIGNED BY: GISEL TAYLOR MD DATE: 09/20/19 7007 Course & Med Decision Making: Course & Med Decision Making Pertinent Labs and Imaging studies reviewed. (See chart for details) Patient is an 83-year-old male who was evaluated in the ER due to speech problem, right-sided facial numbness, right side weakness started over 24 hours ago. Patient was not a candidate for IV TPA. Patient will be admitted to hospital for further evaluation and treatment. Dragon Disclaimer: Dragon Disclaimer: This electronic medical record was generated, in whole or in part, using a voice recognition dictation system. Departure Departure Impression: Primary Impression: Right sided weakness Additional Impression: Suspected cerebrovascular accident (CVA) Disposition: 09 ADMITTED INPATIENT Admitting Physician: ADÁN (DR. Sanchez) Condition: STABLE Justicifation of Admission Dx: Justifications for Admission: Justification of Admission Dx: Yes Stroke - Ischemic: Stroke-Ischemic OSMANI BOLDEN DO Sep 20, 2019 17:48
[2019-09-20 19:00] VITALS: BP 139/63
[2019-09-20] MEDS ORDERED: DEXTROSE 50% 25 GM / 50ML DISP.SYRIN. IV PRN (22:45)
[2019-09-20 23:00] VITALS: BP 133/68
[2019-09-20] MEDS ORDERED: ONDANSETRON PF 4 MG/2 ML VIAL. IVP PRN (23:00)
[2019-09-20] MEDS ORDERED: CARV25TA2 PO (23:20)
[2019-09-20] MEDS ORDERED: CARVEDILOL 12.5 MG TABLET. PO SCH (23:30)
[2019-09-21] MEDS: CARVEDILOL 12.5 MG TABLET. PO SCH ×3 (00:05→17:49)
[2019-09-21] MEDS: ATORVASTATIN CALCIUM 40 MG TABLET. PO SCH ×2 (00:06→22:24)
[2019-09-21] MEDS: HEPARIN for SUB-Q USE 5,000 UNIT/ML VIAL. SQ SCH ×3 (00:10→22:25)
[2019-09-21 03:00] VITALS: BP 132/65
--- NOTE | 2019-09-21 06:17 | RAD ---
DOPPLER CAROTID BILAT History: Reason: CVA / Spl. Instructions: / History: Multiple grayscale, color, and duplex spectral analysis waveform sonographic images were acquired of the carotid, subclavian, and vertebral arteries. Comparison: None Findings: RIGHT SIDE: Peak systolic flow velocity of the distal CCA is 67 cm/sec. Peak systolic flow velocity of the ICA is 2099 cm/sec. The ICA/CCA ratio is 5.7. Peak end diastolic flow velocity of the ICA is 64 cm/sec. The peak systolic velocity of the ECA is 269 cm/sec. Atherosclerotic plaque formation is identified. LEFT SIDE: Peak systolic flow velocity of the distal CCA is 74 cm/sec. Peak systolic flow velocity of the ICA is 1.3 cm/sec. The ICA/CCA ratio is 1.2. Peak end diastolic flow velocity of the ICA is 34 cm/sec. Peak systolic flow velocity of the ECA is 1 6 cm/sec. Atherosclerotic plaque formation is identified. Vertebral arteries: Bilateral vertebral arteries demonstrate antegrade flow. Impression: 1. 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 2. Elevated velocity in the right MIRI suggestive of high-grade stenosis. PQRS Compliance Statement - Stenosis calculations for carotid ultrasound studies are derived from validated velocity criteria which are known to correlate with the NASCET methodology. Electronically signed by: Tyree Easley MD (09/21/2019 6:14 AM) [facility]
[2019-09-21 06:45] LABS: BASO % 0 % (0-3); EOS % 0 % (0-3); HEMATOCRIT 32.7 % (39.0-53.0); HEMOGLOBIN 11.4 g/dL (13.0-17.5); LYMPH # 1.9 x10^3/uL (1.0-4.8); LYMPH % 22 % (24-48); MEAN CORPUSCULAR HEMOGLOBIN 33 pg (25-35); MEAN CORPUSCULAR HGB CONC 35 g/dL (31-37); MEAN CORPUSCULAR VOLUME 95 fL (79-100); MONO # 0.8 x10^3/uL (0.0-1.1); MONO % 9 % (0-9); NEUT # 6.2 x10^3/uL (1.8-7.7); NEUT % 69 % (31-73); PLATELET COUNT 279 x10^3/uL (140-400); RED BLOOD COUNT 3.43 x10^6/uL (4.30-5.70); RED CELL DISTRIBUTION WIDTH 15.1 % (11.5-14.5); WHITE BLOOD COUNT 8.9 x10^3/uL (4.0-11.0)
[2019-09-21 07:13] LABS: CALCIUM 8.6 mg/dL (8.5-10.1); CREATININE 1.2 mg/dL (0.7-1.3); POTASSIUM 4.1 mmol/L (3.5-5.1)
[2019-09-21 07:14] LABS: CHOLESTEROL/HDL RATIO 3.5
[2019-09-21] MEDS: INSULIN LISPRO 300 UNITS/3 ML VIAL. SQ SCH ×4 (07:30→22:23)
[2019-09-21 07:57] VITALS: BP 138/47
[2019-09-21] MEDS ORDERED: CARVEDILOL 12.5 MG TABLET. PO SCH (08:00)
[2019-09-21] MEDS: ASCORBIC ACID 500 MG TABLET PO SCH (08:56)
[2019-09-21] MEDS: TAMSULOSIN 0.4 MG CAP.ER.24H. PO SCH (08:56)
[2019-09-21] MEDS: CYANOCOBALAMIN (VITAMIN B-12) 1,000 MCG TABLET. PO SCH (08:56)
[2019-09-21] MEDS: LINAGLIPTIN 5 MG TABLET PO SCH (08:56)
[2019-09-21] MEDS: ASPIRIN ENTERIC COATED 325 MG TABLET.DR. PO SCH (08:57)
[2019-09-21] MEDS: FINASTERIDE 5 MG TABLET. PO SCH (08:57)
--- NOTE | 2019-09-21 10:00 | RAD ---
EXAMINATION: Magnetic resonance imaging (MRI) of the brain and brainstem without contrast 09/21/2019 8:00 AM HISTORY: CVA TECHNIQUE: Multiplanar multi-weighted MRI of the brain and brainstem was performed without intravenous contrast using the general brain protocol. COMPARISON: CT head 09/20/2019 FINDINGS: The scalp and calvarium are normal. The superior sagittal sinus demonstrates normal venous flow. The corpus callosum is normal in shape and signal intensity. The posterior fossa is unremarkable. The pituitary and sella are normal. The brainstem and craniocervical junction are unremarkable. Anterior cervical discectomy and fusion hardware is partially profiled at C4. There is small territory focal diffusion signal hyperintensity involving the left semiovale and left posterior frontal lobe compatible with acute infarct. The susceptibility weighted sequences reveal no evidence of acute or chronic hemorrhage. Ventricles, sulci and basal cisterns are prominent compatible with moderate generalized cerebral volume loss. There are T2/FLAIR signal hyperintense foci in the periventricular and subcortical white matter with areas of confluence most suggestive of moderate chronic small vessel ischemic changes. The paranasal sinuses are normal. The visualized portions of the mastoids are unremarkable. The orbits appear normal with exception of right lens replacement. Normal flow voids are demonstrated in the carotid arteries and basilar artery. IMPRESSION: 1. 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 No significant mass effect or hemorrhage. 2. Moderate generalized cerebral volume loss. There are T2/FLAIR signal hyperintense foci in the periventricular and subcortical white matter most suggestive of mild chronic small vessel ischemic changes. FOR INTERNAL CODING PURPOSES Critical result: Findings discussed with TAVO Rahman at 09/21/2019 9:51 AM. RESULT CODE: (C) Electronically signed by: Viry Ospina MD (09/21/2019 9:58 AM) [facility]
--- NOTE | 2019-09-21 10:40 | PDOC ---
PROGRESS NOTES Assessment Problems Medical Problems: (1) Right sided weakness Status: Acute Left frontal lobe and centrum semiovale lacunar infarct Carotid stenosis, 70 percent on the right and less than 50 percent on the left. Diagnosed as peripheral neuropathy, has some symptoms, but his exam is actually normal for sensation and reflexes General malaise for the last month, azotemia, hyperglycemia, hypocalcemia, hypomagnesemia, leukocytosis Plan Await echocardiogram Creatinine is better, I will order CT angiogram, I discussed risk with patient and . Note that the carotid stenosis is on the asymptomatic side Rehabilitation modalities Increase to 325 mg aspirin daily, hold on additional antiplatelet agent Discussed with patient and Subjective Feeling much better Objective Vital Signs Date Time Temp Pulse Resp B/P (MAP) Pulse Ox O2 Delivery O2 Flow Rate FiO2 09/21/19 08:56 59 138/47 09/21/19 07:57 97.7 18 96 Room Air 97.7 Intake and Output 09/21/19 07:00 Intake Total 600 ml Balance 600 ml Intake Oral 600 ml # Voids 3 PHYSICAL EXAM Alert. Oriented to time, place and person. PERRL. EOMI. CN: Minimal right central facial weakness, improve from yesterday Muscle tone: normal. Muscle strength: 5/5 DTR: 2+ Plantar reflex: flexor Gait: not examined in bed. Sensory exam: no abnormal findings. No cerebellar signs elicited. Review of Relevant I have reviewed the following items minna (where applicable) has been applied. Labs Laboratory Tests Test 09/20/19 09:42 09/20/19 09:52 09/20/19 10:00 09/20/19 16:12 Glucose (Fingerstick) 187 mg/dL (70-99) 84 mg/dL (70-99) Iron Level 102 ug/dL (65-175) Total Iron Binding Capacity 274 ug/dL (250-450) Iron Saturation 37 % (15-34) Vitamin B12 Level 1654 pg/mL (247-911) Thyroid Stimulating Hormone (TSH) 4.283 uIU/mL (0.358-3.74) White Blood Count 11.7 x10^3/uL (4.0-11.0) Red Blood Count 3.49 x10^6/uL (4.30-5.70) Hemoglobin 11.5 g/dL (13.0-17.5) Hematocrit 33.3 % (39.0-53.0) Mean Corpuscular Volume 95 fL (79-100) Mean Corpuscular Hemoglobin 33 pg (25-35) Mean Corpuscular Hemoglobin Concent 34 g/dL (31-37) Red Cell Distribution Width 14.9 % (11.5-14.5) Platelet Count 292 x10^3/uL (140-400) Neutrophils (%) (Auto) 82 % (31-73) Lymphocytes (%) (Auto) 12 % (24-48) Monocytes (%) (Auto) 6 % (0-9) Eosinophils (%) (Auto) 0 % (0-3) Basophils (%) (Auto) 0 % (0-3) Neutrophils # (Auto) 9.6 x10^3/uL (1.8-7.7) Lymphocytes # (Auto) 1.4 x10^3/uL (1.0-4.8) Monocytes # (Auto) 0.7 x10^3/uL (0.0-1.1) Eosinophils # (Auto) 0.0 x10^3/uL (0.0-0.7) Basophils # (Auto) 0.0 x10^3/uL (0.0-0.2) Prothrombin Time 12.7 SEC (11.7-14.0) Prothromb Time International Ratio 1.0 (0.8-1.1) Activated Partial Thromboplast Time 35 SEC (24-38) Sodium Level 139 mmol/L (136-145) Potassium Level 4.2 mmol/L (3.5-5.1) Chloride Level 103 mmol/L (98-107) Carbon Dioxide Level 26 mmol/L (21-32) Anion Gap 10 (6-14) Blood Urea Nitrogen 32 mg/dL (8-26) Creatinine 1.4 mg/dL (0.7-1.3) Estimated GFR (Cockcroft-Gault) 48.5 Glucose Level 189 mg/dL (70-99) Calcium Level 8.3 mg/dL (8.5-10.1) Magnesium Level 1.4 mg/dL (1.8-2.4) Total Bilirubin 0.6 mg/dL (0.2-1.0) Direct Bilirubin 0.1 mg/dL (0.0-0.2) Aspartate Amino Transf (AST/SGOT) 16 U/L (15-37) Alanine Aminotransferase (ALT/SGPT) 21 U/L (16-63) Alkaline Phosphatase 92 U/L (46-116) Troponin I Quantitative < 0.017 ng/mL (0.000-0.055) DH-Uev-K-Type Natriuretic Peptide 181 pg/mL (0-449) Total Protein 7.4 g/dL (6.4-8.2) Albumin 3.4 g/dL (3.4-5.0) Test 09/20/19 21:13 09/21/19 05:55 09/21/19 07:30 Glucose (Fingerstick) 185 mg/dL (70-99) 121 mg/dL (70-99) White Blood Count 8.9 x10^3/uL (4.0-11.0) Red Blood Count 3.43 x10^6/uL (4.30-5.70) Hemoglobin 11.4 g/dL (13.0-17.5) Hematocrit 32.7 % (39.0-53.0) Mean Corpuscular Volume 95 fL (79-100) Mean Corpuscular Hemoglobin 33 pg (25-35) Mean Corpuscular Hemoglobin Concent 35 g/dL (31-37) Red Cell Distribution Width 15.1 % (11.5-14.5) Platelet Count 279 x10^3/uL (140-400) Neutrophils (%) (Auto) 69 % (31-73) Lymphocytes (%) (Auto) 22 % (24-48) Monocytes (%) (Auto) 9 % (0-9) Eosinophils (%) (Auto) 0 % (0-3) Basophils (%) (Auto) 0 % (0-3) Neutrophils # (Auto) 6.2 x10^3/uL (1.8-7.7) Lymphocytes # (Auto) 1.9 x10^3/uL (1.0-4.8) Monocytes # (Auto) 0.8 x10^3/uL (0.0-1.1) Eosinophils # (Auto) 0.0 x10^3/uL (0.0-0.7) Basophils # (Auto) 0.0 x10^3/uL (0.0-0.2) Sodium Level 141 mmol/L (136-145) Potassium Level 4.1 mmol/L (3.5-5.1) Chloride Level 104 mmol/L (98-107) Carbon Dioxide Level 26 mmol/L (21-32) Anion Gap 11 (6-14) Blood Urea Nitrogen 26 mg/dL (8-26) Creatinine 1.2 mg/dL (0.7-1.3) Estimated GFR (Cockcroft-Gault) 58.0 Glucose Level 117 mg/dL (70-99) Calcium Level 8.6 mg/dL (8.5-10.1) Magnesium Level 2.0 mg/dL (1.8-2.4) Triglycerides Level 112 mg/dL (0-150) Cholesterol Level 105 mg/dL (0-200) LDL Cholesterol, Calculated 53 mg/dL (0-100) VLDL Cholesterol, Calculated 22 mg/dL (0-40) Non-HDL Cholesterol Calculated 75 mg/dL (0-129) HDL Cholesterol 30 mg/dL (40-60) Cholesterol/HDL Ratio 3.5 Laboratory Tests Test 09/20/19 16:12 09/20/19 21:13 09/21/19 05:55 09/21/19 07:30 Glucose (Fingerstick) 84 mg/dL (70-99) 185 mg/dL (70-99) 121 mg/dL (70-99) White Blood Count 8.9 x10^3/uL (4.0-11.0) Red Blood Count 3.43 x10^6/uL (4.30-5.70) Hemoglobin 11.4 g/dL (13.0-17.5) Hematocrit 32.7 % (39.0-53.0) Mean Corpuscular Volume 95 fL (79-100) Mean Corpuscular Hemoglobin 33 pg (25-35) Mean Corpuscular Hemoglobin Concent 35 g/dL (31-37) Red Cell Distribution Width 15.1 % (11.5-14.5) Platelet Count 279 x10^3/uL (140-400) Neutrophils (%) (Auto) 69 % (31-73) Lymphocytes (%) (Auto) 22 % (24-48) Monocytes (%) (Auto) 9 % (0-9) Eosinophils (%) (Auto) 0 % (0-3) Basophils (%) (Auto) 0 % (0-3) Neutrophils # (Auto) 6.2 x10^3/uL (1.8-7.7) Lymphocytes # (Auto) 1.9 x10^3/uL (1.0-4.8) Monocytes # (Auto) 0.8 x10^3/uL (0.0-1.1) Eosinophils # (Auto) 0.0 x10^3/uL (0.0-0.7) Basophils # (Auto) 0.0 x10^3/uL (0.0-0.2) Sodium Level 141 mmol/L (136-145) Potassium Level 4.1 mmol/L (3.5-5.1) Chloride Level 104 mmol/L (98-107) Carbon Dioxide Level 26 mmol/L (21-32) Anion Gap 11 (6-14) Blood Urea Nitrogen 26 mg/dL (8-26) Creatinine 1.2 mg/dL (0.7-1.3) Estimated GFR (Cockcroft-Gault) 58.0 Glucose Level 117 mg/dL (70-99) Calcium Level 8.6 mg/dL (8.5-10.1) Magnesium Level 2.0 mg/dL (1.8-2.4) Triglycerides Level 112 mg/dL (0-150) Cholesterol Level 105 mg/dL (0-200) LDL Cholesterol, Calculated 53 mg/dL (0-100) VLDL Cholesterol, Calculated 22 mg/dL (0-40) Non-HDL Cholesterol Calculated 75 mg/dL (0-129) HDL Cholesterol 30 mg/dL (40-60) Cholesterol/HDL Ratio 3.5 Medications Current Medications Magnesium Sulfate 50 ml @ 25 mls/hr 1X ONCE IV Last administered on 09/20/19at 12:24; Start 09/20/19 at 12:30; Stop 09/20/19 at 14:29; Status DC Acetaminophen (Tylenol) 650 mg PRN Q6HRS PRN PO TEMP > 100.4F; Start 09/20/19 at 17:15 Acetaminophen (Tylenol Supp) 650 mg PRN Q4HRS PRN MD TEMP > 100.4F; Start 09/20/19 at 17:15 Aspirin (Ecotrin) 325 mg DAILYWBKFT PO Last administered on 09/21/19at 08:57; Start 09/21/19 at 08:00 Aspirin (Aspirin Rectal Supp) 300 mg PRN DAILY PRN MD IF UNABLE TO TAKE PO; Start 09/20/19 at 17:15 Cyanocobalamin (Vitamin B-12) 1,000 mcg DAILY PO Last administered on 09/21/19at 08:56; Start 09/21/19 at 09:00 Finasteride (Proscar) 5 mg DAILY PO Last administered on 09/21/19at 08:57; Start 09/21/19 at 09:00 Tamsulosin HCl (Flomax) 0.4 mg DAILY PO Last administered on 09/21/19at 08:56; Start 09/21/19 at 09:00 Ascorbic Acid (Vitamin C) 500 mg DAILY PO Last administered on 09/21/19at 08:56; Start 09/21/19 at 09:00 Atorvastatin Calcium (Lipitor) 80 mg QHS PO ; Start 09/21/19 at 21:00; Stop 09/20/19 at 23:15; Status DC Carvedilol (Coreg) 25 mg BIDWMEALS PO ; Start 09/21/19 at 08:00; Stop 09/20/19 at 23:15; Status DC Insulin Human Lispro (HumaLOG) 0-7 UNITS TIDACHC SQ ; Start 09/21/19 at 07:30 Dextrose (Dextrose 50%-Water Syringe) 12.5 gm PRN Q15MIN PRN IV SEE COMMENTS; Start 09/20/19 at 22:45 Linagliptin (Tradjenta) 5 mg DAILY PO Last administered on 09/21/19at 08:56; Start 09/21/19 at 09:00 Ondansetron HCl (Zofran) 4 mg PRN Q6HRS PRN IVP NAUSEA/VOMITING 1ST CHOICE; Start 09/20/19 at 23:00 Heparin Sodium (Porcine) (Heparin Sodium) 5,000 unit Q12HR SQ Last administered on 09/21/19at 08:58; Start 09/20/19 at 23:00 Atorvastatin Calcium (Lipitor) 80 mg QHS PO Last administered on 09/21/19at 00:06; Start 09/20/19 at 23:30 Carvedilol (Coreg) 25 mg BIDWMEALS PO ; Start 09/20/19 at 23:30; Stop 09/20/19 at 23:23; Status DC Carvedilol (Coreg) 12.5 mg DAILYWBKFT PO Last administered on 09/21/19at 08:56; Start 09/21/19 at 08:00 Carvedilol (Coreg) 25 mg DAILYWSUP PO Last administered on 09/21/19at 00:05; Start 09/20/19 at 23:30 Active Scripts Active Reported Carvedilol 25 Mg Tablet 0.5 Tab PO DAILY08 Hydrochlorothiazide Tablet (Hydrochlorothiazide) 12.5 Mg Tablet 25 Mg PO DAILY Janumet 50-1,000 Mg Tablet (Sitagliptin Phos/Metformin Hcl) 1 Each Tablet 1 Tab PO BID Vitamin C (Ascorbic Acid) 500 Mg Capsule 1 Cap PO DAILY 28 Days Vitamin B-12 (Cyanocobalamin (Vitamin B-12)) 1,000 Mcg Tablet 1,000 Mcg SQ Q4WK Aspir-Low (Aspirin) 81 Mg Tablet.dr 81 Mg PO DAILY Tamsulosin Hcl 0.4 Mg Cap.er.24h 1 Cap PO DAILY Finasteride 5 Mg Tablet 1 Tab PO DAILY Carvedilol 25 Mg Tablet 1 Tab PO DAILYWSUP Atorvastatin Calcium 80 Mg Tablet 1 Tab PO DAILY Vitals/I & O Vital Sign - Last 24 Hours 09/20/19 09/20/19 09/20/19 09/20/19 14:15 14:32 19:00 20:30 Temp 97.4 97.3 97.4 97.3 Pulse 57 68 Resp 18 18 B/P (MAP) 170/60 (96) 139/63 (88) Pulse Ox 95 96 O2 Delivery Room Air Room Air Room Air Room Air 09/20/19 09/21/19 09/21/19 09/21/19 23:00 00:05 03:00 07:57 Temp 98.3 98.2 97.7 98.3 98.2 97.7 Pulse 65 68 63 59 Resp 18 18 18 B/P (MAP) 133/68 (89) 139/63 132/65 (87) 138/47 (77) Pulse Ox 95 97 96 O2 Delivery Room Air Room Air Room Air 09/21/19 08:56 Pulse 59 B/P (MAP) 138/47 Intake and Output 09/20/19 09/20/19 09/21/19 15:00 23:00 07:00 Intake Total 200 ml 400 ml Balance 200 ml 400 ml Images MRI brain: The scalp and calvarium are normal. The superior sagittal sinus demonstrates normal venous flow. The corpus callosum is normal in shape and signal intensity. The posterior fossa is unremarkable. The pituitary and sella are normal. The brainstem and craniocervical junction are unremarkable. Anterior cervical discectomy and fusion hardware is partially profiled at C4. There is small territory focal diffusion signal hyperintensity involving the left semiovale and left posterior frontal lobe compatible with acute infarct. The susceptibility weighted sequences reveal no evidence of acute or chronic hemorrhage. Ventricles, sulci and basal cisterns are prominent compatible with moderate generalized cerebral volume loss. There are T2/FLAIR signal hyperintense foci in the periventricular and subcortical white matter with areas of confluence most suggestive of moderate chronic small vessel ischemic changes. The paranasal sinuses are normal. The visualized portions of the mastoids are unremarkable. The orbits appear normal with exception of right lens replacement. Normal flow voids are demonstrated in the carotid arteries and basilar artery. IMPRESSION: 1. 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 No significant mass effect or hemorrhage. 2. Moderate generalized cerebral volume loss. There are T2/FLAIR signal hyperintense foci in the periventricular and subcortical white matter most suggestive of mild chronic small vessel ischemic changes. Carotids: RIGHT SIDE: Peak systolic flow velocity of the distal CCA is 67 cm/sec. Peak systolic flow velocity of the ICA is 2099 cm/sec. The ICA/CCA ratio is 5.7. Peak end diastolic flow velocity of the ICA is 64 cm/sec. The peak systolic velocity of the ECA is 269 cm/sec. Atherosclerotic plaque formation is identified. LEFT SIDE: Peak systolic flow velocity of the distal CCA is 74 cm/sec. Peak systolic flow velocity of the ICA is 1.3 cm/sec. The ICA/CCA ratio is 1.2. Peak end diastolic flow velocity of the ICA is 34 cm/sec. Peak systolic flow velocity of the ECA is 1 6 cm/sec. Atherosclerotic plaque formation is identified. Vertebral arteries: Bilateral vertebral arteries demonstrate antegrade flow. Impression: 1. 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 2. Elevated velocity in the right MIRI suggestive of high-grade stenosis. Justicifation of Admission Dx: Justifications for Admission: Justification of Admission Dx: Yes NOLVIA RIVERA MD Sep 21, 2019 10:40
[2019-09-21 11:27] VITALS: BP 125/50
--- NOTE | 2019-09-21 11:46 | PDOC ---
[facility] PROGRESS NOTE Chief Complaint Chief Complaint CVA on MRI HTN, Hyperlipidemia Benign prostatic enlarg. Diabetes Anterior cervical discectomy and fusion, testicular, vasectomy Cataract Removal History of Present Illness History of Present Illness 09/21/2019 Patient seen and examined Chart reviewed Discussed with RN Vitals/I&O Vitals/I&O: Vital Signs Date Time Temp Pulse Resp B/P (MAP) Pulse Ox O2 Delivery O2 Flow Rate FiO2 09/21/19 11:27 97.6 66 18 125/50 (75) 95 Room Air 97.6 I & O 09/20/19 09/20/19 09/21/19 15:00 23:00 07:00 Intake Total 200 ml 400 ml Balance 200 ml 400 ml Physical Exam General: Alert, Oriented X3, Cooperative, No acute distress Heart: Regular rate Lungs: Clear Abdomen: Normal bowel sounds, Soft, No tenderness, No hepatosplenomegaly, No masses Extremities: No clubbing, No cyanosis, No edema, Normal pulses, No tenderness /swelling Skin: No rashes, No breakdown, No significant lesion Labs Labs: Laboratory Tests Test 09/20/19 16:12 09/20/19 21:13 09/21/19 05:55 09/21/19 07:30 Glucose (Fingerstick) 84 mg/dL (70-99) 185 mg/dL (70-99) 121 mg/dL (70-99) White Blood Count 8.9 x10^3/uL (4.0-11.0) Red Blood Count 3.43 x10^6/uL (4.30-5.70) Hemoglobin 11.4 g/dL (13.0-17.5) Hematocrit 32.7 % (39.0-53.0) Mean Corpuscular Volume 95 fL (79-100) Mean Corpuscular Hemoglobin 33 pg (25-35) Mean Corpuscular Hemoglobin Concent 35 g/dL (31-37) Red Cell Distribution Width 15.1 % (11.5-14.5) Platelet Count 279 x10^3/uL (140-400) Neutrophils (%) (Auto) 69 % (31-73) Lymphocytes (%) (Auto) 22 % (24-48) Monocytes (%) (Auto) 9 % (0-9) Eosinophils (%) (Auto) 0 % (0-3) Basophils (%) (Auto) 0 % (0-3) Neutrophils # (Auto) 6.2 x10^3/uL (1.8-7.7) Lymphocytes # (Auto) 1.9 x10^3/uL (1.0-4.8) Monocytes # (Auto) 0.8 x10^3/uL (0.0-1.1) Eosinophils # (Auto) 0.0 x10^3/uL (0.0-0.7) Basophils # (Auto) 0.0 x10^3/uL (0.0-0.2) Sodium Level 141 mmol/L (136-145) Potassium Level 4.1 mmol/L (3.5-5.1) Chloride Level 104 mmol/L (98-107) Carbon Dioxide Level 26 mmol/L (21-32) Anion Gap 11 (6-14) Blood Urea Nitrogen 26 mg/dL (8-26) Creatinine 1.2 mg/dL (0.7-1.3) Estimated GFR (Cockcroft-Gault) 58.0 Glucose Level 117 mg/dL (70-99) Calcium Level 8.6 mg/dL (8.5-10.1) Magnesium Level 2.0 mg/dL (1.8-2.4) Triglycerides Level 112 mg/dL (0-150) Cholesterol Level 105 mg/dL (0-200) LDL Cholesterol, Calculated 53 mg/dL (0-100) VLDL Cholesterol, Calculated 22 mg/dL (0-40) Non-HDL Cholesterol Calculated 75 mg/dL (0-129) HDL Cholesterol 30 mg/dL (40-60) Cholesterol/HDL Ratio 3.5 Test 09/21/19 11:06 Glucose (Fingerstick) 177 mg/dL (70-99) Assessment and Plan Assessmemt and Plan Problems Medical Problems: (1) Right sided weakness Status: Acut CVA on MRI HTN, Hyperlipidemia Benign prostatic enlarg. Diabetes Anterior cervical discectomy and fusion, testicular, vasectomy Cataract Removal Plan PT OT and speech therapy Aspirin Home meds DVT prophylaxis Full code Appreciate Dr. Koenig's input Per Dr. Koenig please see below; Left frontal lobe and centrum semiovale lacunar infarct Carotid stenosis, 70 percent on the right and less than 50 percent on the left. Diagnosed as peripheral neuropathy, has some symptoms, but his exam is actually normal for sensation and reflexes General malaise for the last month, azotemia, hyperglycemia, hypocalcemia, hypomagnesemia, leukocytosis Plan Await echocardiogram Creatinine is better, I will order CT angiogram, I discussed risk with patient and . Note that the carotid stenosis is on the asymptomatic side Rehabilitation modalities Increase to 325 mg aspirin daily, hold on additional antiplatelet agent Comment Review of Relevant I have reviewed the following items minna (where applicable) has been applied. Medications: Current Medications Medications (Trade) Dose Ordered Sig/Leona Route PRN Reason Start Time Stop Time Status Last Admin Dose Admin Magnesium Sulfate 50 ml @ 25 mls/hr 1X ONCE IV 09/20/19 12:30 09/20/19 14:29 DC 09/20/19 12:24 Aspirin (Ecotrin) 325 mg DAILYWBKFT PO 09/21/19 08:00 09/21/19 08:57 Cyanocobalamin (Vitamin B-12) 1,000 mcg DAILY PO 09/21/19 09:00 09/21/19 08:56 Finasteride (Proscar) 5 mg DAILY PO 09/21/19 09:00 09/21/19 08:57 Tamsulosin HCl (Flomax) 0.4 mg DAILY PO 09/21/19 09:00 09/21/19 08:56 Ascorbic Acid (Vitamin C) 500 mg DAILY PO 09/21/19 09:00 09/21/19 08:56 Linagliptin (Tradjenta) 5 mg DAILY PO 09/21/19 09:00 09/21/19 08:56 Heparin Sodium (Porcine) (Heparin Sodium) 5,000 unit Q12HR SQ 09/20/19 23:00 09/21/19 08:58 Atorvastatin Calcium (Lipitor) 80 mg QHS PO 09/20/19 23:30 09/21/19 00:06 Carvedilol (Coreg) 12.5 mg DAILYWBKFT PO 09/21/19 08:00 09/21/19 08:56 Carvedilol (Coreg) 25 mg DAILYWSUP PO 09/20/19 23:30 09/21/19 00:05 Justicifation of Admission Dx: Justifications for Admission: Justification of Admission Dx: Yes SILVIA CULP III DO Sep 21, 2019 11:46
--- NOTE | 2019-09-21 14:33 | NUR ---
SW following. Reviewed chart and spoke with RN. Spoke with pt who stated he lives at home with his and stated no concerns about returning home. PT evaluation says discharge home independent. Pt to have MRI today. Pt on room air. Pt on oral medications. No further SW needs at this time.
--- NOTE | 2019-09-21 15:06 | EKG ---
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
--- NOTE | 2019-09-21 15:09 | CARD ---
MR#: [id number] Date of Study: 09/21/2019 Ordering Physician: NOLVIA RIVERA, Referring Physician: NOLVIA RIVERA, Tech: Luly Rodriguez APPROVED REPORT EXAM: Two-dimensional and M-mode echocardiogram with Doppler and color Doppler. Other Information Quality : AverageHR: 63bpm INDICATION CVA/TIA RISK FACTORS Hypertension Hyperlipidemia Diabetes 2D DIMENSIONS RVDd3.0 (2.9-3.5cm)Left Atrium(2D)2.9 (1.6-4.0cm) IVSd1.0 (0.7-1.1cm)Aortic Root(2D)3.4 (2.0-3.7cm) LVDd4.8 (3.9-5.9cm)LVOT Diameter2.1 (1.8-2.4cm) PWd1.0 (0.7-1.1cm)LVDs3.4 (2.5-4.0cm) FS (%) 29.8 %SV60.7 ml LVEF(%)56.9 (>50%) Aortic Valve AoV Peak Arnold.179.3cm/sAoV VTI36.6cm AO Peak GR.12.9mmHgLVOT Peak Arnold.84.3cm/s LVOT VTI 18.98cmAO Mean GR.8mmHg EVELIO (VMAX)1.64le6OJV (VTI)1.77cm2 Mitral Valve MV E Zxfajclo83.7cm/sMV DECEL [id number] MV A Yvfaxiht821.9cm/sMV E Mean Gr.2mmHg MV [id number]/A Ratio0.7 MVA (PHT)2.00cm2 TDI E/Lateral E'9.2E/Medial E'9.5 Pulmonary Valve PV Peak Ijemrgnj066.3cm/sPV Peak Grad.5mmHg Tricuspid Valve TR P. [id number]/sRAP [id number] TR Peak Gr.37nuPoEHOA46aqBs LEFT VENTRICLE The left ventricle is normal size. There is normal left ventricular wall thickness. The left ventricu lar systolic function is normal and the ejection fraction is within normal range. The Ejection Fracti on is 50-55%. Septal motion consistent with conduction abnormality. Otherwise, normal wall motion. Tr ansmitral Doppler flow pattern is Grade I-abnormal relaxation pattern. RIGHT VENTRICLE The right ventricle is borderline dilated. There is normal right ventricular wall thickness. The righ t ventricular systolic function is normal. ATRIA The left atrium size is normal. The right atrium size is normal. The interatrial septum is intact wit h no evidence for an atrial septal defect or patent foramen ovale as noted on 2-D or Doppler imaging. AORTIC VALVE The aortic valve is calcified with restricted leaflet motion. Doppler and Color Flow revealed trace a ortic regurgitation. There is no significant aortic valvular stenosis. Calculated aortic valve area i s 1.72 cm2 with maximum pressure gradient of 13 mmHg and mean pressure gradient of 8 mmHg. MITRAL VALVE The mitral valve is normal in structure and function. There is no evidence of mitral valve prolapse. There is no mitral valve stenosis. Doppler and Color-flow revealed trace mitral regurgitation. TRICUSPID VALVE The tricuspid valve is normal in structure and function. Doppler and Color Flow revealed trace tricus pid regurgitation with an estimated PAP of 33 mmHg. There is no tricuspid valve stenosis. PULMONIC VALVE The pulmonic valve is not well visualized. Doppler and Color Flow revealed trace pulmonic valvular re gurgitation. There is no pulmonic valvular stenosis. GREAT VESSELS The aortic root is normal in size. The IVC is normal in size and collapses >50% with inspiration. PERICARDIAL EFFUSION There is no evidence of significant pericardial effusion. Critical Notification Critical Value: No <Conclusion> The left ventricular systolic function is normal and the ejection fraction is within normal range. Th e Ejection Fraction is 50-55%. Septal motion consistent with conduction abnormality. Otherwise, normal wall motion. Signed by : Cliff Chester, Electronically Approved : 09/21/2019 15:08:36
[2019-09-21 15:13] VITALS: BP 146/42
[2019-09-21 19:59] VITALS: BP 141/59
[2019-09-21] MEDS ORDERED: ATORVASTATIN CALCIUM 40 MG TABLET. PO SCH (21:00)
[2019-09-21 22:28] VITALS: BP 143/61
[2019-09-22 03:34] VITALS: BP 115/57
[2019-09-22] MEDS: INSULIN LISPRO 300 UNITS/3 ML VIAL. SQ SCH ×2 (07:30→12:30)
[2019-09-22 07:48] VITALS: BP 135/59
[2019-09-22] MEDS: ASCORBIC ACID 500 MG TABLET PO SCH (08:40)
[2019-09-22] MEDS: CARVEDILOL 12.5 MG TABLET. PO SCH (08:40)
[2019-09-22] MEDS: ASPIRIN ENTERIC COATED 325 MG TABLET.DR. PO SCH (08:41)
[2019-09-22] MEDS: TAMSULOSIN 0.4 MG CAP.ER.24H. PO SCH (08:41)
[2019-09-22] MEDS: LINAGLIPTIN 5 MG TABLET PO SCH (08:41)
[2019-09-22] MEDS: CYANOCOBALAMIN (VITAMIN B-12) 1,000 MCG TABLET. PO SCH (08:41)
[2019-09-22] MEDS: FINASTERIDE 5 MG TABLET. PO SCH (08:41)
[2019-09-22] MEDS: HEPARIN for SUB-Q USE 5,000 UNIT/ML VIAL. SQ SCH (08:42)
[2019-09-22] MEDS ORDERED: IOHEXOL 300 MG/ML 100ML VIAL. IV ONE (09:00)
[2019-09-22] MEDS ORDERED: CONTRAST GIVEN. MC PRN (09:15)
[2019-09-22] MEDS ORDERED: IOHEXOL 350 MG/ML 100 ML VIAL. IV ONE (09:30)
--- NOTE | 2019-09-22 09:59 | RAD ---
CT ANGIOGRAPHY HEAD AND NECK History:Reason: right carotid stenosis, left-sided CVA / Spl. Instructions: INJ 75ML OMNI 350 / History: Technique: After bolus of intravenous contrast, volumetric CT data acquisition was acquired of the head and neck. Multiplanar reconstruction images to include MIP and 3-D reconstruction images are submitted. Exposure: One or more of the following individualized dose reduction techniques were utilized for this examination: 1. Automated exposure control 2. Adjustment of the mA and/or kV according to patient size 3. Use of iterative reconstruction technique. Comparison: MRI September 21, 2019. CT angiogram June 13, 2016. Any determination of stenosis is based on NASCET criteria. Head CTA: ICA: Bilateral carotid siphon atheromatous plaque. Mild narrowing. No occlusion. MCA: No stenosis, occlusion or aneurysm. MIRI: No stenosis, occlusion or aneurysm. EVENT MARKETING COORDINATOR: No stenosis, occlusion or aneurysm. Basilar artery: No stenosis, occlusion or aneurysm. Distal vertebral arteries: Left intracranial vertebral artery and moderate narrowing due to soft and calcified plaque with potential thrombosed aneurysm (series 3 image 223), unchanged compared to 2017. No occlusion. CT angiogram neck: Aortic arch: Moderate soft and calcified plaque within the aortic arch and branch vessels. Common carotid arteries: Atheromatous plaque bilaterally most prominent within the distal common carotid arteries, right greater than left. Moderate right distal common carotid artery narrowing due to calcified plaque. No occlusion. Internal carotid arteries: Heavily calcified plaque within the carotid bifurcations. Mild 50 percent narrowing of the right proximal internal carotid artery no occlusion. External carotid arteries: Patent Vertebral arteries: Bilateral proximal vertebral artery atheromatous plaque with mild narrowing. Mild emphysematous changes. Soft tissues appear normal. Bones: Bilateral mandibular esteban. Anterior stabilization C4-C6. Advanced multilevel cervical spondylosis. Multilevel neuroforaminal narrowing. No high-grade canal stenosis. Impression: 1. No large vessel occlusion. 2. Moderate narrowing of the right distal common carotid artery, progressed compared to prior. 3. Mild narrowing of the right proximal internal carotid artery, unchanged. 4. Moderate narrowing of the left distal vertebral artery, unchanged. 5. Additional atheromatous plaque within the head and neck. Electronically signed by: Kaz Gonzalez DO (09/22/2019 9:56 AM) [id number]
--- NOTE | 2019-09-22 11:17 | NUR ---
SW following. Reviewed chart and coordinated care with RN, Dr. Clemons, and Suzie with speech therapy. Spoke with pt and pt's . Pt to discharge home today will out-patient OT/[facility]. SW phoned and faxed discharge orders as well as facesheet and clinicals to the out-patient therapy department, , (fax). No additional SW needs at this time.
[2019-09-22 11:28] VITALS: BP 136/80
--- NOTE | 2019-09-22 11:35 | PDOC ---
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 Ruiz can monitor Discussed with patient and Subjective Wants to go home Objective Vital Signs Date Time Temp Pulse Resp B/P (MAP) Pulse Ox O2 Delivery O2 Flow Rate FiO2 09/22/19 08:40 62 135/59 09/22/19 08:00 Room Air 09/22/19 07:48 97.6 18 97 97.6 Intake and Output 09/22/19 07:00 Intake Total 1000 ml Balance 1000 ml Intake Oral 1000 ml # Voids 3 PHYSICAL EXAM Alert. Oriented to time, place and person. PERRL. EOMI. CN: No ight central facial weakness, has some redness under the right eye,? Cellulitis Muscle tone: normal. Muscle strength: 5/5 DTR: 2+ Plantar reflex: flexor Gait: normal. Sensory exam: no abnormal findings. No cerebellar signs elicited. Review of Relevant I have reviewed the following items minna (where applicable) has been applied. Labs Laboratory Tests Test 09/20/19 16:12 09/20/19 21:13 09/21/19 05:55 09/21/19 07:30 Glucose (Fingerstick) 84 mg/dL (70-99) 185 mg/dL (70-99) 121 mg/dL (70-99) White Blood Count 8.9 x10^3/uL (4.0-11.0) Red Blood Count 3.43 x10^6/uL (4.30-5.70) Hemoglobin 11.4 g/dL (13.0-17.5) Hematocrit 32.7 % (39.0-53.0) Mean Corpuscular Volume 95 fL (79-100) Mean Corpuscular Hemoglobin 33 pg (25-35) Mean Corpuscular Hemoglobin Concent 35 g/dL (31-37) Red Cell Distribution Width 15.1 % (11.5-14.5) Platelet Count 279 x10^3/uL (140-400) Neutrophils (%) (Auto) 69 % (31-73) Lymphocytes (%) (Auto) 22 % (24-48) Monocytes (%) (Auto) 9 % (0-9) Eosinophils (%) (Auto) 0 % (0-3) Basophils (%) (Auto) 0 % (0-3) Neutrophils # (Auto) 6.2 x10^3/uL (1.8-7.7) Lymphocytes # (Auto) 1.9 x10^3/uL (1.0-4.8) Monocytes # (Auto) 0.8 x10^3/uL (0.0-1.1) Eosinophils # (Auto) 0.0 x10^3/uL (0.0-0.7) Basophils # (Auto) 0.0 x10^3/uL (0.0-0.2) Sodium Level 141 mmol/L (136-145) Potassium Level 4.1 mmol/L (3.5-5.1) Chloride Level 104 mmol/L (98-107) Carbon Dioxide Level 26 mmol/L (21-32) Anion Gap 11 (6-14) Blood Urea Nitrogen 26 mg/dL (8-26) Creatinine 1.2 mg/dL (0.7-1.3) Estimated GFR (Cockcroft-Gault) 58.0 Glucose Level 117 mg/dL (70-99) Calcium Level 8.6 mg/dL (8.5-10.1) Magnesium Level 2.0 mg/dL (1.8-2.4) Triglycerides Level 112 mg/dL (0-150) Cholesterol Level 105 mg/dL (0-200) LDL Cholesterol, Calculated 53 mg/dL (0-100) VLDL Cholesterol, Calculated 22 mg/dL (0-40) Non-HDL Cholesterol Calculated 75 mg/dL (0-129) HDL Cholesterol 30 mg/dL (40-60) Cholesterol/HDL Ratio 3.5 Test 09/21/19 11:06 09/21/19 17:01 09/21/19 22:23 09/22/19 07:27 Glucose (Fingerstick) 177 mg/dL (70-99) 72 mg/dL (70-99) 116 mg/dL (70-99) 133 mg/dL (70-99) Test 09/22/19 11:09 Glucose (Fingerstick) 185 mg/dL (70-99) Laboratory Tests Test 09/21/19 17:01 09/21/19 22:23 09/22/19 07:27 09/22/19 11:09 Glucose (Fingerstick) 72 mg/dL (70-99) 116 mg/dL (70-99) 133 mg/dL (70-99) 185 mg/dL (70-99) Medications Current Medications Magnesium Sulfate 50 ml @ 25 mls/hr 1X ONCE IV Last administered on 09/20/19at 12:24; Start 09/20/19 at 12:30; Stop 09/20/19 at 14:29; Status DC Acetaminophen (Tylenol) 650 mg PRN Q6HRS PRN PO TEMP > 100.4F; Start 09/20/19 at 17:15 Acetaminophen (Tylenol Supp) 650 mg PRN Q4HRS PRN SC TEMP > 100.4F; Start 09/20/19 at 17:15 Aspirin (Ecotrin) 325 mg DAILYWBKFT PO Last administered on 09/22/19at 08:41; Start 09/21/19 at 08:00 Aspirin (Aspirin Rectal Supp) 300 mg PRN DAILY PRN SC IF UNABLE TO TAKE PO; Start 09/20/19 at 17:15 Cyanocobalamin (Vitamin B-12) 1,000 mcg DAILY PO Last administered on 09/22/19at 08:41; Start 09/21/19 at 09:00 Finasteride (Proscar) 5 mg DAILY PO Last administered on 09/22/19at 08:41; Start 09/21/19 at 09:00 Tamsulosin HCl (Flomax) 0.4 mg DAILY PO Last administered on 09/22/19at 08:41; Start 09/21/19 at 09:00 Ascorbic Acid (Vitamin C) 500 mg DAILY PO Last administered on 09/22/19at 08:40; Start 09/21/19 at 09:00 Atorvastatin Calcium (Lipitor) 80 mg QHS PO ; Start 09/21/19 at 21:00; Stop 09/20/19 at 23:15; Status DC Carvedilol (Coreg) 25 mg BIDWMEALS PO ; Start 09/21/19 at 08:00; Stop 09/20/19 at 23:15; Status DC Insulin Human Lispro (HumaLOG) 0-7 UNITS TIDACHC SQ Last administered on 09/21/19at 12:20; Start 09/21/19 at 07:30 Dextrose (Dextrose 50%-Water Syringe) 12.5 gm PRN Q15MIN PRN IV SEE COMMENTS; Start 09/20/19 at 22:45 Linagliptin (Tradjenta) 5 mg DAILY PO Last administered on 09/22/19at 08:41; Start 09/21/19 at 09:00 Ondansetron HCl (Zofran) 4 mg PRN Q6HRS PRN IVP NAUSEA/VOMITING 1ST CHOICE; Start 09/20/19 at 23:00 Heparin Sodium (Porcine) (Heparin Sodium) 5,000 unit Q12HR SQ Last administered on 09/22/19at 08:42; Start 09/20/19 at 23:00 Atorvastatin Calcium (Lipitor) 80 mg QHS PO Last administered on 09/21/19at 22:2 4; Start 09/20/19 at 23:30 Carvedilol (Coreg) 25 mg BIDWMEALS PO ; Start 09/20/19 at 23:30; Stop 09/20/19 at 23:23; Status DC Carvedilol (Coreg) 12.5 mg DAILYWBKFT PO Last administered on 09/22/19at 08:40; Start 09/21/19 at 08:00 Carvedilol (Coreg) 25 mg DAILYWSUP PO Last administered on 09/21/19at 17:49; Start 09/20/19 at 23:30 Iohexol (Omnipaque 300 Mg/ml) 75 ml 1X ONCE IV ; Start 09/22/19 at 09:00; Stop 09/22/19 at 09:04; Status DC Info (CONTRAST GIVEN -- Rx MONITORING) 1 each PRN DAILY PRN MC SEE COMMENTS; Start 09/22/19 at 09:15; Stop 09/24/19 at 09:14 Iohexol (Omnipaque 350 Mg/ml) 75 ml 1X ONCE IV Last administered on 09/22/19at 09:33; Start 09/22/19 at 09:30; Stop 09/22/19 at 09:31; Status DC Active Scripts Active Reported Carvedilol 25 Mg Tablet 0.5 Tab PO DAILY08 Hydrochlorothiazide Tablet (Hydrochlorothiazide) 12.5 Mg Tablet 25 Mg PO DAILY Janumet 50-1,000 Mg Tablet (Sitagliptin Phos/Metformin Hcl) 1 Each Tablet 1 Tab PO BID Vitamin C (Ascorbic Acid) 500 Mg Capsule 1 Cap PO DAILY 28 Days Vitamin B-12 (Cyanocobalamin (Vitamin B-12)) 1,000 Mcg Tablet 1,000 Mcg SQ Q4WK Aspir-Low (Aspirin) 81 Mg Tablet.dr 81 Mg PO DAILY Tamsulosin Hcl 0.4 Mg Cap.er.24h 1 Cap PO DAILY Finasteride 5 Mg Tablet 1 Tab PO DAILY Carvedilol 25 Mg Tablet 1 Tab PO DAILYWSUP Atorvastatin Calcium 80 Mg Tablet 1 Tab PO DAILY Vitals/I & O Vital Sign - Last 24 Hours 09/21/19 09/21/19 09/21/19 09/21/19 15:13 17:49 19:59 22:00 Temp 97.4 98.4 97.4 98.4 Pulse 61 61 71 Resp 19 16 B/P (MAP) 146/42 (76) 146/42 141/59 (86) Pulse Ox 95 97 O2 Delivery Room Air Room Air Room Air 09/21/19 09/21/19 09/22/19 09/22/19 22:28 22:33 03:34 07:48 Temp 97.6 97.6 97.6 97.6 97.6 97.6 Pulse 61 68 62 Resp 18 16 18 B/P (MAP) 143/61 (88) 115/57 (76) 135/59 (84) Pulse Ox 96 95 97 O2 Delivery Room Air Room Air Room Air 09/22/19 09/22/19 08:00 08:40 Pulse 62 B/P (MAP) 135/59 O2 Delivery Room Air Intake and Output 09/21/19 09/21/19 09/22/19 15:00 23:00 07:00 Intake Total 500 ml 300 ml 200 ml Balance 500 ml 300 ml [address] ANGIOGRAPHY HEAD AND NECK History:Reason: right carotid stenosis, left-sided CVA / Spl. Instructions: INJ 75ML OMNI 350 / History: Technique: After bolus of intravenous contrast, volumetric CT data acquisition was acquired of the head and neck. Multiplanar reconstruction images to include MIP and 3-D reconstruction images are submitted. Exposure: One or more of the following individualized dose reduction techniques were utilized for this examination: 1. Automated exposure control 2. Adjustment of the mA and/or kV according to patient size 3. Use of iterative reconstruction technique. Comparison: MRI September 21, 2019. CT angiogram June 13, 2016. Any determination of stenosis is based on NASCET criteria. Head CTA: ICA: Bilateral carotid siphon atheromatous plaque. Mild narrowing. No occlusion. MCA: No stenosis, occlusion or aneurysm. MIRI: No stenosis, occlusion or aneurysm. SALARY AND WAGE ADMINISTRATOR: No stenosis, occlusion or aneurysm. Basilar artery: No stenosis, occlusion or aneurysm. Distal vertebral arteries: Left intracranial vertebral artery and moderate narrowing due to soft and calcified plaque with potential thrombosed aneurysm (series 3 image 223), unchanged compared to 2017. No occlusion. CT angiogram neck: Aortic arch: Moderate soft and calcified plaque within the aortic arch and branch vessels. Common carotid arteries: Atheromatous plaque bilaterally most prominent within the distal common carotid arteries, right greater than left. Moderate right distal common carotid artery narrowing due to calcified plaque. No occlusion. Internal carotid arteries: Heavily calcified plaque within the carotid bifurcations. Mild 50 percent narrowing of the right proximal internal carotid artery no occlusion. External carotid arteries: Patent Vertebral arteries: Bilateral proximal vertebral artery atheromatous plaque with mild narrowing. Mild emphysematous changes. Soft tissues appear normal. Bones: Bilateral mandibular esteban. Anterior stabilization C4-C6. Advanced multilevel cervical spondylosis. Multilevel neuroforaminal narrowing. No high-grade canal stenosis. Impression: 1. No large vessel occlusion. 2. Moderate narrowing of the right distal common carotid artery, progressed compared to prior. 3. Mild narrowing of the right proximal internal carotid artery, unchanged. 4. Moderate narrowing of the left distal vertebral artery, unchanged. 5. Additional atheromatous plaque within the head and neck. Echocardiogram: LEFT VENTRICLE The left ventricle is normal size. There is normal left ventricular wall thickness. The left ventricular systolic function is normal and the ejection fraction is within normal range. The Ejection Fraction is 50-55%. Septal motion consistent with conduction abnormality. Otherwise, normal wall motion. Transmitral Doppler flow pattern is Grade I-abnormal relaxation pattern. RIGHT VENTRICLE The right ventricle is borderline dilated. There is normal right ventricular wall thickness. The right ventricular systolic function is normal. ATRIA The left atrium size is normal. The right atrium size is normal. The interatrial septum is intact with no evidence for an atrial septal defect or patent foramen ovale as noted on 2-D or Doppler imaging. AORTIC VALVE The aortic valve is calcified with restricted leaflet motion. Doppler and Color Flow revealed trace aortic regurgitation. There is no significant aortic valvular stenosis. Calculated aortic valve area is 1.72 cm2 with maximum pressure gradient of 13 mmHg and mean pressure gradient of 8 mmHg. MITRAL VALVE The mitral valve is normal in structure and function. There is no evidence of mitral valve prolapse. There is no mitral valve stenosis. Doppler and Color-flow revealed trace mitral regurgitation. TRICUSPID VALVE The tricuspid valve is normal in structure and function. Doppler and Color Flow revealed trace tricuspid regurgitation with an estimated PAP of 33 mmHg. There is no tricuspid valve stenosis. PULMONIC VALVE The pulmonic valve is not well visualized. Doppler and Color Flow revealed trace pulmonic valvular regurgitation. There is no pulmonic valvular stenosis. GREAT VESSELS The aortic root is normal in size. The IVC is normal in size and collapses >50% with inspiration. PERICARDIAL EFFUSION There is no evidence of significant pericardial effusion. Critical Notification Critical Value: No <Conclusion> The left ventricular systolic function is normal and the ejection fraction is within normal range. The Ejection Fraction is 50-55%. Septal motion consistent with conduction abnormality. Otherwise, normal wall motion. Justicifation of Admission Dx: Justifications for Admission: Justification of Admission Dx: Yes Stroke - Ischemic: Stroke-Ischemic NOLVIA RIVERA MD Sep 22, 2019 11:35
--- NOTE | 2019-09-22 13:26 | NUR ---
Discharge Note: FIORELLA HERNANDEZ6 [facility] Discharge instructions and discharge home medications reviewed with Patient and a copy given. All questions have been answered and understanding verbalized. The following instructions and handouts were given: follow up instructions, Stroke education folder. Discontinued lines and drains: 20 gauge left ac, tip intact. patient tolerated well. Patient discharged to home with self care via .
--- NOTE | 2019-09-22 13:47 | PDOC ---
Provider Note Provider Note Vascular Surgery Consult - agree with [employer] HEALTHCARE ADMINISTRATIVE ASSISTANT full note 83 year old male with acute left frontal infarct. CTA neck reviewed which shows no significant stenosis of the left carotid arteries. The right common carotid and internal carotid artery shows approximately 50% stenosis and is asymptomatic. No vascular intervention is needed. Patient being discharged today. Will have him follow up in 6 months with carotid duplex scan. Justicifation of Admission Dx: Justifications for Admission: Justification of Admission Dx: Yes Stroke - Ischemic: Stroke-Ischemic MILAD PAGAN MD Sep 22, 2019 13:47
--- NOTE | 2019-09-22 14:05 | PDOC2 ---
CONSULT Date of Consult Date of Consult DATE: 09/22/19 TIME: 13:45 Reason for Consult Reason for Consult: Stroke and carotid stenosis Referring Physician Referring Physician: Dr. Koenig Identification/Chief Complaint Chief Complaint stroke Source Source: Patient History of Present Illness Reason for Visit: The patient is an 83-year-old right-handed diabetic male who has not felt well for the past month. He has not been eating well has lost weight and felt weak all over. On Friday at around noon, he noticed some right arm weakness and dysarthria and "collapsed on the couch". His noted some right facial drooping and some difficulty with speech. He finally agreed to go to the emergency department on Friday09/20/19. He had an MRI of his brain which showed a small acute posterior left frontal lobe infarct. He had a carotid ultrasound which suggested greater than 70% carotid stenosis on the right with less than 50% stenosis on the left. Dr. Mcbride reviewed his CTA of his neck which showed maybe 50% stenosis on the right and no significant stenosis on the left.. He has had some resolution of his symptoms. He denies any additional transient, unilateral numbness, weakness or clumsiness of the hand, arm or leg. He denies any additional episodes of garbled speech, facial drooping or amaurosis. He denies chest pain and shortness of breath. . He currently denies symptoms of illness. He denies fever and chills. He denies nausea and vomiting. He denies diarrhea and constipation. He denies melena or hematochezia. He denies dysuria or hematuria. He denies any new or different abdomen, back or groin pain. He denies abdominal pain associated with eating. He denies any problems with buttock, thigh or calf cramping when he walks. He says he has never had a heart attack, angioplasty or coronary stents, denies CABG, pacemaker and AICD. Prior to this admission, he has no history of stroke. He says he has been diabetic since 2005. He does not currently smoke but smoked about 1 pack/day for 40 years. He quit when he was 61. He takes aspirin 81 mg daily which was increased to 325 mg daily this admission. He takes atorvastatin daily. Past Medical History Cardiovascular: HTN, Hyperlipidemia CENTRAL NERVOUS SYSTEM: Periperal neuropathy GI: Diverticulosis, Other (Colonic polyps, diarrhea) Musculoskeletal: Other (Rib fracture) Renal/: Benign prostatic enlarg. Endocrine: Diabetes Past Surgical History Past Surgical History: Cataract Removal Family History Family History: Hypertension Social History No ALCOHOL: rare (2 drinks per week) Drugs: None Current Problem List Problem List Problems Medical Problems: (1) Right sided weakness Status: Acute (2) Suspected cerebrovascular accident (CVA) Status: Acute Current Medications Current Medications Current Medications Magnesium Sulfate 50 ml @ 25 mls/hr 1X ONCE IV Last administered on 09/20/19at 12:24; Start 09/20/19 at 12:30; Stop 09/20/19 at 14:29; Status DC Acetaminophen (Tylenol) 650 mg PRN Q6HRS PRN PO TEMP > 100.4F; Start 09/20/19 at 17:15 Acetaminophen (Tylenol Supp) 650 mg PRN Q4HRS PRN ID TEMP > 100.4F; Start 09/20/19 at 17:15 Aspirin (Ecotrin) 325 mg DAILYWBKFT PO Last administered on 09/22/19at 08:41; Start 09/21/19 at 08:00 Aspirin (Aspirin Rectal Supp) 300 mg PRN DAILY PRN ID IF UNABLE TO TAKE PO; Start 09/20/19 at 17:15 Cyanocobalamin (Vitamin B-12) 1,000 mcg DAILY PO Last administered on 09/22/19at 08:41; Start 09/21/19 at 09:00 Finasteride (Proscar) 5 mg DAILY PO Last administered on 09/22/19at 08:41; Start 09/21/19 at 09:00 Tamsulosin HCl (Flomax) 0.4 mg DAILY PO Last administered on 09/22/19at 08:41; Start 09/21/19 at 09:00 Ascorbic Acid (Vitamin C) 500 mg DAILY PO Last administered on 09/22/19at 08:40; Start 09/21/19 at 09:00 Atorvastatin Calcium (Lipitor) 80 mg QHS PO ; Start 09/21/19 at 21:00; Stop 09/20/19 at 23:15; Status DC Carvedilol (Coreg) 25 mg BIDWMEALS PO ; Start 09/21/19 at 08:00; Stop 09/20/19 at 23:15; Status DC Insulin Human Lispro (HumaLOG) 0-7 UNITS TIDACHC SQ Last administered on 09/22/19at 12:30; Start 09/21/19 at 07:30 Dextrose (Dextrose 50%-Water Syringe) 12.5 gm PRN Q15MIN PRN IV SEE COMMENTS; Start 09/20/19 at 22:45 Linagliptin (Tradjenta) 5 mg DAILY PO Last administered on 09/22/19at 08:41; Start 09/21/19 at 09:00 Ondansetron HCl (Zofran) 4 mg PRN Q6HRS PRN IVP NAUSEA/VOMITING 1ST CHOICE; Start 09/20/19 at 23:00 Heparin Sodium (Porcine) (Heparin Sodium) 5,000 unit Q12HR SQ Last administered on 09/22/19at 08:42; Start 09/20/19 at 23:00 Atorvastatin Calcium (Lipitor) 80 mg QHS PO Last administered on 09/21/19at 22:24; Start 09/20/19 at 23:30 Carvedilol (Coreg) 25 mg BIDWMEALS PO ; Start 09/20/19 at 23:30; Stop 09/20/19 at 23:23; Status DC Carvedilol (Coreg) 12.5 mg DAILYWBKFT PO Last administered on 09/22/19at 08:40; Start 09/21/19 at 08:00 Carvedilol (Coreg) 25 mg DAILYWSUP PO Last administered on 09/21/19at 17:49; Start 09/20/19 at 23:30 Iohexol (Omnipaque 300 Mg/ml) 75 ml 1X ONCE IV ; Start 09/22/19 at 09:00; Stop 09/22/19 at 09:04; Status DC Info (CONTRAST GIVEN -- Rx MONITORING) 1 each PRN DAILY PRN MC SEE COMMENTS; Start 09/22/19 at 09:15; Stop 09/24/19 at 09:14 Iohexol (Omnipaque 350 Mg/ml) 75 ml 1X ONCE IV Last administered on 09/22/19at 09:33; Start 09/22/19 at 09:30; Stop 09/22/19 at 09:31; Status DC Active Scripts Active Reported Carvedilol 25 Mg Tablet 0.5 Tab PO DAILY08 Hydrochlorothiazide Tablet (Hydrochlorothiazide) 12.5 Mg Tablet 25 Mg PO DAILY Janumet 50-1,000 Mg Tablet (Sitagliptin Phos/Metformin Hcl) 1 Each Tablet 1 Tab PO BID Vitamin C (Ascorbic Acid) 500 Mg Capsule 1 Cap PO DAILY 28 Days Vitamin B-12 (Cyanocobalamin (Vitamin B-12)) 1,000 Mcg Tablet 1,000 Mcg SQ Q4WK Aspir-Low (Aspirin) 81 Mg Tablet.dr 81 Mg PO DAILY Tamsulosin Hcl 0.4 Mg Cap.er.24h 1 Cap PO DAILY Finasteride 5 Mg Tablet 1 Tab PO DAILY Carvedilol 25 Mg Tablet 1 Tab PO DAILYWSUP Atorvastatin Calcium 80 Mg Tablet 1 Tab PO DAILY Allergies Allergies: Coded Allergies: amoxicillin (Verified Allergy, Intermediate, 09/18/18) ROS Review of System A 10 point review of systems is negative except for what is listed in the HPI. Physical Exam General: Alert, Oriented X3, Cooperative, No acute distress HEENT: Atraumatic, Other (He has a right carotid bruit and 2+ carotid pulses.) Lungs: Clear to auscultation, Normal air movement Heart: Regular rate, No murmurs Abdomen: Normal bowel sounds, Soft, No tenderness Extremities: No cyanosis, No edema, Other (He has 2+ radial, 2+ femoral and 2+ dorsalis pedis pulses bilaterally.) Neuro: Normal speech, Normal tone, Other (He has right hand fine motor deficits but his scorer single strength is strong and equal bilaterally. His smile is symmetrical and his tongue protrudes midline.) Psych/Mental Status: Mental status NL, Mood NL MUSCULOSKELETAL: No deformity, No swelling Vitals VITALS Vital Signs Date Time Temp Pulse Resp B/P (MAP) Pulse Ox O2 Delivery O2 Flow Rate FiO2 09/22/19 11:28 98.1 65 18 136/80 (98) 97 Room Air 98.1 Labs Labs Laboratory Tests Test 09/20/19 16:12 09/20/19 21:13 09/21/19 05:55 09/21/19 07:30 Glucose (Fingerstick) 84 mg/dL (70-99) 185 mg/dL (70-99) 121 mg/dL (70-99) White Blood Count 8.9 x10^3/uL (4.0-11.0) Red Blood Count 3.43 x10^6/uL (4.30-5.70) Hemoglobin 11.4 g/dL (13.0-17.5) Hematocrit 32.7 % (39.0-53.0) Mean Corpuscular Volume 95 fL (79-100) Mean Corpuscular Hemoglobin 33 pg (25-35) Mean Corpuscular Hemoglobin Concent 35 g/dL (31-37) Red Cell Distribution Width 15.1 % (11.5-14.5) Platelet Count 279 x10^3/uL (140-400) Neutrophils (%) (Auto) 69 % (31-73) Lymphocytes (%) (Auto) 22 % (24-48) Monocytes (%) (Auto) 9 % (0-9) Eosinophils (%) (Auto) 0 % (0-3) Basophils (%) (Auto) 0 % (0-3) Neutrophils # (Auto) 6.2 x10^3/uL (1.8-7.7) Lymphocytes # (Auto) 1.9 x10^3/uL (1.0-4.8) Monocytes # (Auto) 0.8 x10^3/uL (0.0-1.1) Eosinophils # (Auto) 0.0 x10^3/uL (0.0-0.7) Basophils # (Auto) 0.0 x10^3/uL (0.0-0.2) Sodium Level 141 mmol/L (136-145) Potassium Level 4.1 mmol/L (3.5-5.1) Chloride Level 104 mmol/L (98-107) Carbon Dioxide Level 26 mmol/L (21-32) Anion Gap 11 (6-14) Blood Urea Nitrogen 26 mg/dL (8-26) Creatinine 1.2 mg/dL (0.7-1.3) Estimated GFR (Cockcroft-Gault) 58.0 Glucose Level 117 mg/dL (70-99) Calcium Level 8.6 mg/dL (8.5-10.1) Magnesium Level 2.0 mg/dL (1.8-2.4) Triglycerides Level 112 mg/dL (0-150) Cholesterol Level 105 mg/dL (0-200) LDL Cholesterol, Calculated 53 mg/dL (0-100) VLDL Cholesterol, Calculated 22 mg/dL (0-40) Non-HDL Cholesterol Calculated 75 mg/dL (0-129) HDL Cholesterol 30 mg/dL (40-60) Cholesterol/HDL Ratio 3.5 Test 09/21/19 11:06 09/21/19 17:01 09/21/19 22:23 09/22/19 07:27 Glucose (Fingerstick) 177 mg/dL (70-99) 72 mg/dL (70-99) 116 mg/dL (70-99) 133 mg/dL (70-99) Test 09/22/19 11:09 Glucose (Fingerstick) 185 mg/dL (70-99) Laboratory Tests Test 09/21/19 17:01 09/21/19 22:23 09/22/19 07:27 09/22/19 11:09 Glucose (Fingerstick) 72 mg/dL (70-99) 116 mg/dL (70-99) 133 mg/dL (70-99) 185 mg/dL (70-99) Assessment/Plan Assessment/Plan 83-year-old diabetic gentleman with recent history of small, acute posterior left frontal lobe stroke. He had suggestion of greater than 70% right carotid stenosis but no significant left carotid stenosis which would account for his right hand dysarthria and difficulty with speech. A CTA was reviewed by Dr. Mcbride which showed right carotid stenosis approaching 50% and no significant left carotid stenosis. I discussed with the patient his results and recommendations for care. I discussed with him his risk of additional stroke related to carotid stenosis, which is low. I discussed with him when we consider carotid endarterectomy for stroke risk reduction. Our plan at this time is to follow-up in 6 months with a repeat carotid ultrasound and an office visit at that time. Plan: Continue aspirin and Lipitor daily. Could consider adding clopidogrel to his daily regimen. Will defer to neurology for this. No vascular surgery indicated at this time. Follow-up in 6 months with a carotid ultrasound and an office visit at vascular surgery. May discharge from a vascular surgery standpoint. DESHAWN YAN FRONT COUNTER ATTENDANT Sep 22, 2019 14:05
--- NOTE | 2019-09-24 14:03 | DS ---
DATE OF DISCHARGE: 09/22/2019 ADMISSION DIAGNOSIS: Right-sided weakness. DISCHARGE DIAGNOSIS: Resolving right-sided weakness. HOSPITAL COURSE: The patient is a pleasant elderly male, who presented with right-sided weakness. He was admitted. We did physical therapy and occupational therapy. We consulted Dr. Preciado. Over the next few days, the patient's symptoms improved. Yesterday, I saw him and examined him. He was doing well. We discharged to home. DISPOSITION: Home. ACTIVITY: As tolerated. DIET: Low sodium. MEDICATIONS: Please see the MRAD. TOTAL TIME: 34 minutes. NIAL Quiana CULP DO DR: QUETA/johnny JOB#: [id number] / [id number]
== END 2019-09-22 13:10 | disposition home or self-care (01) | DRG 64 ==
LOC: ER 09:25 → 6 SOUTH 13:12
PROVIDERS: ADMIT Internal Medicine; ATTEND Internal Medicine
DX: I63.81 Other cerebral infarction due to occlusion or stenosis of small artery (principal); G93.6 Cerebral edema; N17.9 Acute kidney failure, unspecified; E11.42 Type 2 diabetes mellitus with diabetic polyneuropathy; E11.51 Type 2 diabetes mellitus with diabetic peripheral angiopathy without gangrene; E78.5 Hyperlipidemia, unspecified; I10 Essential (primary) hypertension; N40.0 Benign prostatic hyperplasia without lower urinary tract symptoms; R29.810 Facial weakness; K57.90 Diverticulosis of intestine, part unspecified, without perforation or abscess without bleeding; I65.21 Occlusion and stenosis of right carotid artery; E11.65 Type 2 diabetes mellitus with hyperglycemia; E83.42 Hypomagnesemia; E83.51 Hypocalcemia; Z79.82 Long term (current) use of aspirin; Z82.49 Family history of ischemic heart disease and other diseases of the circulatory system; Z86.73 Personal history of transient ischemic attack (TIA), and cerebral infarction without residual deficits; Z87.19 Personal history of other diseases of the digestive system; Z87.891 Personal history of nicotine dependence; Z79.4 Long term (current) use of insulin; Z88.1 Allergy status to other antibiotic agents; Z98.1 Arthrodesis status
CPT/HCPCS: 36415; 70450; 70496; 70498; 70551; 71045; 80048; 80061; 80076; 82607; 82962; 83540; 83550; 83735; 83880; 84443; 84484; 85025; 85610; 85730; 93005; 93306; 93880; 96365; J1644; J1815; J3475; Q9967; 92610-GN; 97530-GO; 97535-GO; 99285-25; G0378

== ENCOUNTER → 2020-09-01 | Outpatient (CLI) | payer BC ==
[~2020-09-01] MED LIST changes: +ASCO500C9 PO; +CONTRAST GIVEN. MC PRN; +HYDR12.58 PO; +IOHEXOL 300 MG/ML 100ML VIAL. IV ONE; -LISI-338 PO; +LISI-517 PO; +SITA1TAB11 PO
--- NOTE | 2020-09-01 12:51 | KCIC ---
PQRS Compliance Statement: One or more of the following individualized dose reduction techniques were utilized for this examinat ion: 1. Automated exposure control 2. Adjustment of the mA and/or kV according to patient size 3. Use of iterative reconstruction technique CTA NECK 09/01/2020 10:11 AM INDICATION: Bilateral carotid stenosis COMPARISON: CTA head and neck 09/22/2019 TECHNIQUE: Multiple axial CT images of the neck were obtained after the intravenous administration of nonionic contrast. Coronal and sagittal reformats are provided. Maximum intensity projection images are provided. Stenosis calculations for CT, MR, and conventional angiography are based upon measurements of the dis hoa ICA diameter in accordance with the NASCET methodology. Stenosis calculations for carotid ultraso und studies are derived from validated velocity criteria which are known to correlate with the NASCET methodology. FINDINGS: Ventricles, sulci and basal cisterns are normal in appearance. Mckoy-white matter differentiation is p reserved. There is no mass, mass effect or midline shift. Posterior fossa is normal in appearance. Se lla and suprasellar cistern appear normal. Orbits are normal in appearance with exception of right le ns replacement. Scalp and calvaria appear intact. Paranasal sinuses are well aerated. Mastoid air rashida ls are well aerated. Mild centrilobular pulmonary emphysema. Thyroid gland is normal in appearance. Neck soft tissues are normal in appearance. No pathologically enlarged cervical lymphadenopathy. Pharynx and larynx appear intact. Vascular findings: There is a normal three-vessel aortic arch with moderate calcified and noncalcified atheromatous plaq ue. Origins of the brachiocephalic vessels are widely patent. Right common carotid artery is normal in course and caliber. Coarse calcified atherosclerotic plaque at the right carotid bifurcation results in 25 % stenosis. External carotid artery is widely patent. Left common carotid artery is normal in course and caliber. Calcified and noncalcified atheromatous p laque is identified in the left carotid bifurcation. No significant stenosis of the left cervical int ernal carotid artery. External carotid artery is widely patent. Mild atherosclerotic changes of the intracranial left internal carotid artery without significant cole nge. 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 There is no aneurysm, vascular malformation or high-grade stenosis/large vessel occlusion involving c ircle of Damon. Superior sagittal sinus is patent. IMPRESSION: 1. There is no evidence for hemodynamically significant carotid stenosis. Calcified plaque identified at the carotid bifurcations without significant change. Electronically signed by: Viry Ospina MD (09/01/2020 12:49 PM) [id number]
== END ==
LOC: KCIC CT 10:06
PROVIDERS: ATTEND Surgery Vascular Surgery
DX: I65.23 Occlusion and stenosis of bilateral carotid arteries (principal); J43.2 Centrilobular emphysema
CPT/HCPCS: 70498; 82565; Q9967

== ENCOUNTER → 2021-05-14 | Outpatient (CLI) | payer BC ==
[~2021-05-14] MED LIST changes: -CONTRAST GIVEN. MC PRN; -LISI-517 PO; +LISI5TAB15 PO
[2021-05-14 09:43] LABS: CREATININE 1.3 mg/dL (0.7-1.3); GFR 52.6
--- NOTE | 2021-05-14 13:09 | RAD ---
CTA NECK History: Carotid artery stenosis. Technique: After bolus of intravenous contrast, volumetric CT data acquisition was acquired of the [facility]. Multiplanar reconstruction images to include MIP and 3-D reconstruction images are submitted. Any determination of stenosis is based on NASCET criteria. Comparison: CT neck 09/01/2020 Findings: Aortic arch: Normal caliber three-vessel arch. Moderate atherosclerosis. Common carotid arteries: Heavy calcification of the distal right common carotid artery and bulb narro wing of the lumen to approximately 2.5 mm, approximately 60 percent stenosis. Moderate atherosclerosi s of the left common carotid without significant stenosis. Internal carotid arteries: Narrowing of the proximal right internal carotid causes approximately 35 p ercent stenosis. Moderate atherosclerosis of the left ICA without significant stenosis. External carotid arteries: Adequately patent right external carotid artery. Moderate stenosis at the origin of the left external carotid. Vertebral arteries: Mild narrowing at the origin of the right vertebral artery. Bilateral upper lung emphysematous change. Soft tissues appear normal. ACDF from C4-C6. Severe adjacent segment disease at C6-C7 and moderate to severe degenerative disc di sease at C2-C3 and C3-C4. Multilevel uncovertebral hypertrophy and facet hypertrophy cause potential for multiple level neural foraminal stenosis greatest at C6-C7. Impression: 1. Heavy calcification at the distal right common carotid artery, carotid bulb and proximal right in ternal carotid artery causing approximately 60 percent stenosis of the right carotid bulb and 35 perc ent stenosis of the proximal right ICA. Findings progressive from comparison. Exposure: One or more of the following individualized dose reduction techniques were utilized for thi s examination: 1. Automated exposure control 2. Adjustment of the mA and/or kV according to patient size 3. Use of iterative reconstruction technique. Electronically signed by: Mahad Kerr MD (05/14/2021 1:07 PM) [id number]
--- NOTE | 2021-05-14 17:05 | CARD ---
MR#: [id number] Date of Study: 05/14/2021 Ordering Physician: MARCUS KEYS, Referring Physician: MARCUS KEYS, Tech: Betty Bhat [facility] APPROVED REPORT EXAM: Two-dimensional and M-mode echocardiogram with Doppler and color Doppler. Other Information Quality : AverageHR: 60bpm Rhythm : Atrial Fibrillation INDICATION Dyspnea RISK FACTORS Hypertension Hyperlipidemia Diabetes 2D DIMENSIONS RVDd3.2 (2.9-3.5cm)Left Atrium(2D)3.1 (1.6-4.0cm) IVSd1.3 (0.7-1.1cm)Aortic Root(2D)3.6 (2.0-3.7cm) LVDd4.3 (3.9-5.9cm)LVOT Diameter2.1 (1.8-2.4cm) PWd1.2 (0.7-1.1cm)LVDs2.2 (2.5-4.0cm) FS (%) 47.8 %SV66.2 ml Aortic Valve AoV Peak Arnold.198.8cm/sAoV VTI49.5cm AO Peak GR.15.8mmHgLVOT Peak Arnold.91.5cm/s AO Mean GR.8mmHgAVA (VMAX)1.56cm2 Mitral Valve MV E Ehxvprni11.3cm/sMV DECEL [id number] MV A Dcdknhfo363.7cm/sE/A Ratio0.6 Pulmonary Valve PV Peak Fvdgykbb721.2cm/s Tricuspid Valve TR P. Rfxurnpe161fg/sTR Peak Gr.29mmHg LEFT VENTRICLE The left ventricle is normal size. There is mild concentric left ventricular hypertrophy. The left ve ntricular systolic function is normal and the ejection fraction is within normal range. LV ejection fraction is 55 to 60%. There is normal LV segmental wall motion. Transmitral Doppler flow pattern is Grade I-abnormal relaxation pattern. RIGHT VENTRICLE The right ventricle is normal size. There is normal right ventricular wall thickness. The right ventr icular systolic function is normal. ATRIA The left atrium size is normal. The right atrium size is normal. The interatrial septum is intact wit h no evidence for an atrial septal defect or patent foramen ovale as noted on 2-D or Doppler imaging. AORTIC VALVE The aortic valve is calcified and displays decreased opening. Doppler and Color Flow revealed no sign ificant aortic regurgitation. There is mild valvular aortic stenosis. MITRAL VALVE The mitral valve is normal in structure and function. There is no evidence of mitral valve prolapse. There is no mitral valve stenosis. Doppler and Color Flow revealed trace mitral valve regurgitation. TRICUSPID VALVE The tricuspid valve is normal in structure and function. Doppler and Color Flow revealed mild tricusp id regurgitation. There is no tricuspid valve stenosis. PULMONIC VALVE The pulmonary valve is normal in structure and function. Doppler and Color Flow revealed mild pulmoni c valvular regurgitation. GREAT VESSELS The aortic root is normal in size. The ascending aorta is normal in size. The IVC is normal in size a nd collapses >50% with inspiration. PERICARDIAL EFFUSION There is no evidence of significant pericardial effusion. Critical Notification Critical Value: No <Conclusion> The left ventricle is normal size. The left ventricular systolic function is normal and the ejection fraction is within normal range. LV ejection fraction is 55 to 60%. There is mild concentric left ventricular hypertrophy. Doppler and Color Flow revealed no significant aortic regurgitation. There is mild valvular aortic stenosis. Doppler and Color Flow revealed trace mitral valve regurgitation. Doppler and Color Flow revealed mild tricuspid regurgitation. Signed by : Bridger Sterling MD Electronically Approved : 05/14/2021 17:05:07
== END ==
LOC: ECHO 07:39
PROVIDERS: ATTEND Internal Medicine Cardiovascular Disease
DX: I65.23 Occlusion and stenosis of bilateral carotid arteries (principal); I08.8 Other rheumatic multiple valve diseases; I70.0 Atherosclerosis of aorta; J43.9 Emphysema, unspecified; M50.31 Other cervical disc degeneration, high cervical region; R06.00 Dyspnea, unspecified; M48.02 Spinal stenosis, cervical region; M47.892 Other spondylosis, cervical region; Z98.1 Arthrodesis status
CPT/HCPCS: 36415; 70498; 82565; 84520; 93306; Q9967; C8929

== ENCOUNTER → 2021-05-22 | Outpatient (CLI) | payer BC ==
[~2021-05-22] MED LIST changes: -IOHEXOL 300 MG/ML 100ML VIAL. IV ONE; +REGADENOSON 0.4 MG/5 ML DISP.SYRIN. IV ONE
--- NOTE | 2021-05-22 13:26 | RAD ---
MR#: [id number] Date of Study: 05/22/2021 Ordering Physician: MARCUS KEYS, Referring Physician: ROJAS MESA Tech: RT Domi (R) (N) APPROVED REPORT Test Type: Pharmacological Stress Nurse/Tech: Demian Garrido RN Test Indications: Dyspnea on exertion Cardiac History: HTN, x-smoker, DM, CVA Medications: See Electronic Medical Record Medical History: See Electronic Medical Record Resting ECG: SR Resting Heart Rate: 58 bpm Resting Blood Pressure: 136/37mmHg Pretest Chest Pain: None Nurse/Tech Notes Lungs CTA, S1S2 Consent: The procedure was explained to the patient in lay terms. Informed consent was witnessed. Lew eout was entered into eVestment. History and Stress Test performed by RT Domi (R) (N) Pharm. Details Pharmacologic stress testing was performed using 0.4mg per 5ml of regadenoson given intravenously ove r 7-10 seconds. Stress Symptoms No chest pain or symptoms. POST EXERCISE Reason for Termination: Infusion complete Max HR: 108 bpm Max Blood Pressure: 137/61mmHg Blood Pressure response to exercise: Normal blood pressure response during stress. Heart Rate response to exercise: normal response Chest Pain: No. Arrhythmia: No. ST Change: No. INTERPRETATION Stress EKG Conclusion: No evidence of stress induced EKG changes. Imaging Protocol IMAGE PROTOCOL: Rest Tc-99m/stress Tc-99m 1 day Rest: Stress: Viability: Radiopharm.Tc99m [id number] Sestamibi Dose10.3mCi 30mCi Duration 15min. 10min. Img Date 05/22/2021 05/22/2021 Inj-Img Evgb15ntn. 60min. Rest Admin Site:IV - Left AntecubitalAdministrator:RT Ginger DuronR)(N) Stress Admin Site: IV - Left AntecubitalAdministrator: REZA Cueto, ARRT (R)(N) STRESS DATA End Diast. Vol.75.0mlAv. Heart Rate66.0bpm End Syst. Vol.15.0mlCO Index BSA0.0L/min Myocardial Zfwd335.0gEject. Zndcwknp05.0% Stress Rates Pk. Fill Rate2.29EDV/secLVtime Pk. Fill 151.92msec Pk. Empty Rate4.26ESV/secLVtime Pk. Nnpwn612.40msec 1/3 Pk. Fill1.39EDV/sec Stress Scores Regional WT1.00Summed WT2.00 Regional WM0.00Summed WM0.00 The rest and stress images show normal perfusion, normal contraction and thickening. LV Perf. Quant 17 Seg. SSS5.00 17 Seg. SRS6.00 17 Seg. SDS2.00 Stress Defect Extent (% LAD)1.90Rest Defect Extent (% LAD)15.00Rev. Defect Extent (% LAD)1.30 Stress Defect Extent (% LCX) 16.30Rest Defect Extent (% LCX)22.50Rev. Defect Extent (% LCX)0.00 Stress Defect Extent (% RCA)0.00Rest Defect Extent (% RCA)1.10Rev. Defect Extent (% RCA)0.00 Stress Defect Extent (% IVANNA)7.20Rest Defect Extent (% IVANNA)13.90Rev. Defect Extent (% IVANNA)1.70 Other Information Quality:Average Risk Assessment: Low Risk Conclusion 1. No evidence of EKG changes with stress testing. 2. Normal perfusion at stress/rest. 3. Low risk study. 4. EF > 60%. Signed by : Cliff Chester, Electronically Approved : 05/22/2021 13:25:45
== END ==
LOC: NM 11:53
PROVIDERS: ATTEND Internal Medicine Cardiovascular Disease
DX: R06.00 Dyspnea, unspecified (principal)
CPT/HCPCS: 78452; 93017; A9500; J2785